=== PATIENT | male | born 1970 | race Caucasian/White ===

== ENCOUNTER 2019-02-25 21:24 | Inpatient (IN) | payer BC, SELFPAY ==
[2019-02-25] VITALS (17 sets, daily range): BP systolic 147–168; BP diastolic 96–111; PULSE 80–100; RESP 10–27; TEMP 36.8; O2SAT 93–97
--- NOTE | 2019-02-25 21:47 | DI.CT_ITS ---
SYMPTOM/DIAGNOSIS: VOMITING AND EPIGASTRIC PAIN CT ABDOMEN AND PELVIS: CT scan of the abdomen and pelvis was performed following the uneventful administration of intravenous contrast material. No priors for comparison. The visualized lung bases are clear. There is a circumferential mass seen in the distal esophagus extending in to the stomach. It measures 3.7 cm AP x 5.4 cm transverse x 7.8 cm cranial caudally. The superior aspect of the mass is not included. The liver is normal in size. There is decreased attenuation of the liver suggesting fatty infiltration. No suspicious hepatic mass seen. The portal, superior mesenteric and splenic veins are patent. The gallbladder is negative. There is no biliary ductal dilatation. The pancreas, spleen and adrenal glands are unremarkable. The kidneys show normal and symmetric enhancement. No evidence of a solid renal mass or obstruction is present. The urinary bladder is intact. The reproductive organs are unremarkable. The aorta is of normal caliber. There do appear to be mildly enlarged lymph nodes in the region of the celiac access. No abdominal or pelvic ascites or pneumoperitoneum is present. Apart from the abnormal findings at the gastroesophageal junction the bowel is unremarkable. No findings to suggest an acute appendicitis are present. Degenerative changes are seen in the spine. IMPRESSION: 3.7 AP x 5.4 cm transverse by at least 7.5 cm mass-like lesion extending from the distal esophagus in to the stomach. This may represent neoplasm, infectious or inflammatory process cannot be excluded. 2. Hepatic steatosis
--- NOTE | 2019-02-25 21:48 | ED.GENADUL_ITS ---
Discharge Plan Disposition Patient Disposition: [facility] INPATIENT Condition: Stable Discharge Details Chief Complaint: Abd Prob Clinical Impression: Esophageal mass Primary Care Provider: Juhi Lassiter V ED Provider: Tyler Casiano Home Meds and New Rx's Prescriptions: No Action pantoprazole 40 MG tablet,delayed release (DR/EC) 40 mg PO DAILY RF: 0 hydrochlorothiazide 25 mg Tablet RF: 0 Medical Decision Making 49-year-old male states he has had weeks of intermittent episodes of nausea and vomiting that are primarily provoked by eating. He states the discomfort responded to periods of decreased p.o. intake, but after restarting solid foods this week he is developed intermittent episodes of vomiting which occurred tonig ht and were associated with 2 episodes of production of clotted blood with the emesis. He did not have syncope. Is not had a fever. He states he formally was drinking daily but not for some weeks time. He arrives with a temp of 36.7, pulse 90, blood pressure 123/79. He is tender in the epigastrium. His differential diagnosis includes pancreatitis, gastritis, biliary colic, must exclude an atypical presentation of ACS. Patient had IV access established, given PPI, antiemetic, parenteral analgesia. He is referred for EKG, laboratory testing, chest x-ray and CT scan of the abdomen and pelvis. Labs reveal a white blood cell count of 10, hematocrit 45, platelets 358. Slight anion gap of 12, lactic acid is normal at 0.9. Total bili still elevated at 1.5. Troponin is negative. Lipase 43. CT: Mass or hyperenhancing inflammatory or infectious process at the distal esophagus extending into stomach, measuring up to 7.[address] Carranza who recommends medicine admission with maintenance fluids overnight, probable upper GI endoscopy with biopsy on Wednesday. No acute surgical issue at this time. Discussed with Dr Lala and patient to be admitted. Lab Data Lab results reviewed: Yes I reviewed the patient's lab results. Laboratory Results - last 24 hr 02/25/19 02/25/19 02/25/19 21:40 21:40 21:40 WBC 10.68 RBC 4.99 Hgb 15.8 Hct 45.8 MCV 91.8 MCH 31.7 MCHC 34.5 RDW 12.4 Plt Count 358 MPV 9.0 Immature Gran % 0.5 Neutrophils % 70.5 Lymphocytes % 14.2 Monocytes % 14.0 Eosinophils % 0.6 Basophils % 0.2 Absolute Neutrophils 7.53 H Absolute Lymphocytes 1.52 Absolute Monocytes 1.50 H Absolute Eosinophils 0.06 Absolute Basophils 0.02 Sodium 137 Potassium 3.9 Chloride 99 Carbon Dioxide 25.5 Anion Gap 12.5 H BUN 8 Creatinine 0.76 Estimated GFR/1.73 m2 >= 60.00 Glucose 109 H Lactate 0.9 Calcium 9.4 Magnesium 1.8 Total Bilirubin 1.5 H AST 22 ALT 32 Alkaline Phosphatase 85 Troponin I < 0.05 Total Protein 7.4 Albumin 3.1 L Lipase 43 L ECG Data Attestation: I personally reviewed and interpreted this ECG (s) as follows: Interpretation: Normal sinus rhythm with a rate of 83, the QRS is narrow, there is no ST segment elevation present. HPI General Mode of arrival: ambulatory . Date/Time Provider Initiated Documentation: 02/25/19 21:31 . Limitations to Documentation: no limitations . Information obtained by: patient and family . History of Present Illness 49 year old M presents to the emergency department with the chief complaint of Epigastric pain and vomiting, described as moderate and similar to prior epi sodes, Quality is described as aching and dull, and is localized to the abdomen. Patient reports radiation to back. Patient started experiencing this day(s) and it has been intermittent. Rest improves symptom(s), Eating worsens symptoms . Patient notes loss of appetite and nausea/vomiting; denies fever/chills. Patient did receive the following treatments prior to arrival, none Related Data Home Medications Medication Instructions Recorded Confirmed pantoprazole 40 mg PO DAILY 07/21/15 02/25/19 hydrochlorothiazide 02/25/19 Allergies Allergy/AdvReac Type Severity Reaction Status Date / Time aspirin AdvReac Unverified 02/25/19 22:08 General Stated Complaint: Abd Prob JAXSON: 3 Review of Systems Review of Systems Recently feels food has bee getting stuck. Some clotted blood with emesis this evening. No fever. States is been constipated. States he used to drink 3-6 alcoholic beverages per day, not for some weeks. States that intermittent epigastric discomfort that is worse with eating over weeks time. 8 systems reviewed and otherwise neg [facility] Social History Smoking/Tobacco Use Status: Former Tobacco Use Alcohol Intake: current Alcohol Intake frequency: 3 or more drinks per day Alcohol type: hard liquor Drug use: Occasionally Substance use type: does not use Do you feel safe at home: Yes Do you feel safe in your relationship?: Yes Exam Narrative Exam Narrative: GEN: awake, alert, oriented 3. Pleasant, well groomed, interactive. HEAD: Normocephalic, atraumatic ENT: Mucous membranes moist, oropharynx unremarkable, External ear exam unremarkable EYES: PERRL, EOMI NECK: Full ROM, no FAUSTO, no menigismus CHEST/RESP: Tender in the upper quadrants, most focally at the epigastrium, clear to auscultation bilateral, no wheeze/rhonchi/rales CARDIOVASCULAR: Borderline tachycardia, no murmur, rub yanna. 2+ Rad pulse bilateral ABDOMEN: Soft, nontender, no mass. +Bowel sounds EXT: Full ROM, no edema, no rash Neuro: Grossly normal neurologic exam, conversant, interactive. Psych: Speech fluent, thoughts congruent, affect normal Course Vital Signs Temperature 36.8 C 02/25/19 21:34 Pulse 91 H 02/25/19 21:34 Respiratory Rate 14 02/25/19 21:34 Blood Pressure 160/111 H 02/25/19 21:34 Pulse Oximetry 97 02/25/19 21:34 Temperature 36.7 C 02/25/19 21:38 Temperature Source Temporal Artery Scan 02/25/19 21:38 Pulse 115 H 02/25/19 21:38 Respiratory Rate 14 02/25/19 21:38 Respiratory Effort Non-Labored 02/25/19 21:36 Blood Pressure 123/79 02/25/19 21:38 Blood Pressure Position Supine 02/25/19 21:38 Pulse Oximetry 98 02/25/19 21:38 Oxygen Delivery Method Room Air 02/25/19 21:38 Oxygen Flow Rate 0 02/25/19 21:38 Pain Level 3 02/25/19 21:38
[2019-02-25 21:57] LABS: Lactate 0.9 mmol/L (0.6-1.4)
[2019-02-25] MEDS: Normal Saline 1,000 ML 1000 ML IV (21:57)
[2019-02-25] MEDS: HYDROmorphone 2 MG/ML VIAL 0.5 MG IVP (21:58)
[2019-02-25] MEDS: Ondansetron 4 MG/2 ML VIAL IVP (21:58)
[2019-02-25] MEDS: Pantoprazole 40 MG VIAL IVP (21:59)
[2019-02-25 22:01] LABS: Abs Immature Grans 0.05 k/cumm (0.0-0.09); Absolute Basophil Count 0.02 k/cumm (0.0-0.2); Absolute Eosinophil Count 0.06 k/cumm (0.0-0.7); Absolute Lymphocyte Count 1.52 k/cumm (1.2-3.4); Absolute Neutrophil Count 7.53 k/cumm (1.2-6.7); Basophils % 0.2; Eosinophils % 0.6; HCT 45.8 % (40.0-50.0); HGB 15.8 g/dL (13.5-17.5); Immature Grans % 0.5; Lymphocytes % 14.2; Mean Corp. HGB Concentration 34.5 g/dL (32.0-36.0); Mean Corpuscular Hemoglobin 31.7 pg (27.0-33.0); Mean Corpuscular Volume 91.8 fL (80-95); Neutrophils % 70.5; Platelet Count 358 x1000/uL (130-400); RBC 4.99 m/cumm (4.50-6.00); RBC Distribution Width 12.4 % (11.8-14.1); White Blood Cell Count 10.68 k/cumm (4.4-10.8)
[2019-02-25 22:17] LABS: ALT 32 U/L (12-78); AST 22 U/L (15-37); Albumin 3.1 g/dL (3.4-5.0); Alkaline Phosphatase 85 U/L (46-116); Anion Gap 12.5 mmol/L (3-11); BUN 8 mg/dL (7-18); Bilirubin, Total 1.5 mg/dL (0.2-1.0); CO2 25.5 mmol/L (21.0-32.0); CREATININE 0.76 mg/dL (0.70-1.30); Calcium 9.4 mg/dL (8.5-10.1); Chloride 99 mmol/L (98-107); Glucose 109 mg/dL (70-100); Lipase 43 U/L (73-393); Magnesium 1.8 mg/dL (1.8-2.4); Potassium 3.9 mmol/L (3.5-5.1); Sodium 137 mmol/L (136-145); Total Protein 7.4 g/dL (6.4-8.2); Troponin I < 0.05 ng/mL (0.00-0.06)
[2019-02-25 22:57] LABS: Bilirubin Negative (Negative); Blood Moderate (Negative); Clarity Clear (Clear); Glucose Negative (Negative); Ketones 15 mg/dL (Negative); Leukocyte Esterase Negative (Negative); Nitrite Negative (Negative); Urobilinogen 0.2 EU/dL (Up TO 0.2)
[2019-02-25 23:00] LABS: Bacteria Negative HPF (Negative); C & S Indicated? No; Casts Negative LPF (Negative); Crystals Negative HPF (Negative); Epithelial Cells Negative HPF (Negative); Mucus Negative (Negative); RBC 0-2 (0-2); WBC 0-2 HPF (0-5)
--- NOTE | 2019-02-25 23:00 | DI.RAD_ITS ---
SYMPTOM/DIAGNOSIS: EPIGASTRIC PAIN, VOMITING CHEST X-RAY: Frontal and lateral views. Comparison 06/03/17 Heart size and pulmonary vasculature are within normal limits and stable. The lungs are clear. No effusions or pneumothoraces are identified. Age appropriate degenerative changes are seen in the spine. IMPRESSION: No acute pulmonary process.
--- NOTE | 2019-02-25 23:17 | DI.VRAD_ITS ---
EXAM: CT Abdomen and Pelvis With Contrast EXAM DATE/TIME: 02/25/2019 9:48 PM CLINICAL HISTORY: 49 years old, male; Vomiting and other: Epigastric pain; Abdominal pain; Patient HX: Vomiting and epigastric pain; Additional info: Chest pain and vomiting blood TECHNIQUE: Imaging protocol: Axial computed tomography images of the abdomen and pelvis with intravenous contrast. Coronal and sagittal reformatted images were created and reviewed. COMPARISON: No relevant prior studies available. FINDINGS: Liver: There is a diffuse decrease in hepatic parenchymal density, consistent with mild fatty infiltration. There is a small region of focal fatty infiltration in the liver adjacent to the falciform ligament. Gallbladder and bile ducts: Normal. No calcified stones. No ductal dilation. Pancreas: Normal. No ductal dilation. Spleen: Normal. No splenomegaly. Adrenals: Normal. No mass. Kidneys and ureters: Normal. No hydronephrosis. Stomach and bowel: There is no evidence of intestinal perforation or obstruction. Appendix: No evidence of appendicitis. Intraperitoneal space: No free intraperitoneal gas. Retroperitoneal space: Circumferential mass or hyperenhancing inflammatory/infectious process, distal esophagus, extending into the stomach, measuring 3.7 AP by 5.4 transverse by 7.5 cm longitudinally. Vasculature: Normal. No abdominal aortic aneurysm. Lymph nodes: Normal. No enlarged lymph nodes. Bladder: Unremarkable as visualized. Reproductive: Unremarkable as visualized. Bones/joints: The spine demonstrates mild degenerative changes at multiple levels. Soft tissues: Unremarkable. IMPRESSION: 1. Mass or hyperenhancing inflammatory or infectious process at the distal esophagus extending into stomach, measuring up to 7.5 cm. 2. Fatty liver. Dictated and Authenticated by: Anil Sinha MD. Ordering:SAUL Scott MD
--- NOTE | 2019-02-25 23:17 | DI.VRAD_ITS ---
EXAM: XR Chest, 2 Views EXAM DATE/TIME: 02/25/2019 9:48 PM CLINICAL HISTORY: 49 years old, male; Other: Epigastric pain, vomiting; Additional info: Chest pain and vomiting blood TECHNIQUE: Imaging protocol: XR of the chest, 2 views. COMPARISON: CR CHEST 2 VIEWS PA,LAT 06/03/2017 9:31 AM FINDINGS: Lungs: Unremarkable. No consolidation. Pleural space: Unremarkable. No pleural effusion. No pneumothorax. Heart/Mediastinum: Unremarkable. No cardiomegaly. Bones/joints: Degenerative changes of spine. IMPRESSION: No acute findings. Dictated and Authenticated by: Anil Sinha MD. Ordering:SAUL Scott MD
[2019-02-25] MEDS: Omnipaque 350 MG/ML 100 ML BTL IJ (23:24)
[2019-02-25] MEDS: Normal Saline 1,000 ML 150 ML IV (23:50)
--- NOTE | 2019-02-25 23:57 | W.PM.HP.N ---
Date of service: 02/25/19 Time of Service: 23:57 Assessment and Plan (1) Hematemesis: Start date: 02/25/19 Current visit: Yes Status: Acute This is a 49-year-old gentleman who presented with hematemesis and CT scan did reveal greater than 7 cm mass in the distal esophagus extending into the stomach. He has been having increasing symptoms and weight loss with anorexia over the last 2 weeks. He is a smoker and previous daily drinker. He is also had decreased bowel movements with this decrease eating with melena when he did induce bowel movements with cathartics. His abdominal discomfort appears to be radiation from his stomach with no focal tenderness to suggest diverticulitis with patient having tenderness in the left lower quadrant. There is no evidence of significant blood loss the patient not being anemic or infection with a white blood cell count normal and no fever. Surgery was called and deferred admission to surgical service will be consulted for evaluation. Patient may deserve an EGD at least with biopsy and consider gastrostomy tube for feeding if this mass is obstructing as well as follow-up with colonoscopy because of the lower abdominal symptoms. Patient is a full code. Overnight we will IV hydrate keep on clear fluid diet. He is on minimal meds we will continue IV PPI and treat his hypertension with metoprolol for now. Qualifiers: Nausea presence: with nausea Qualified Code(s): K92.0 - Hematemesis (2) Esophageal mass: Start date: 02/25/19 Current visit: Yes Status: Acute Surgical consultation for EGD and biopsy which will help with long-term plan. He may require feeding tube to bypass this obstruction until this can be further evaluated and treated. (3) HTN (hypertension), benign: Current visit: Yes Status: Chronic This is on his problem with the patient questionably on a HCTZ at home. We will treat this with metoprolol for now and monitor hydrated. (4) Alcohol use disorder, moderate, in early remission: Current visit: Yes Status: Chronic Patient states he has not drunk for 2 months and was drinking beer daily. This appears to have been problematic and does increase his risk for esophageal cancer with his tobacco use. There is not appear to be reason to be concerned about withdrawal patient not having drunk 2 months. Continue to monitor and certified addiction counselor on complete and maintenance of cessation. (5) Tobacco dependence: Current visit: Yes Status: Chronic Patient will be placed on a NicoDerm patch and will be given nebulizers treatment of his bronchospasm. His chest x-ray was unrevealing and he appears to have no acute infectious process with his lungs. He may be placed on inhalers at home use as well. Briefly counseled on tobacco cessation which would be beneficial to his health. History of Present Illness Chief Complaint: Epigastric abdominal pain with hematemesis Narrative: This is a 49-year-old gentleman who has had 2-week history of increasing dysphasia with decreased appetite and 20 pound weight loss presented to the ED when he began to have epigastric discomfort which radiated to his back and nausea with hematemesis of blood clots. Over the last 2 weeks he has also had decreased bowel movements and has been increasing cathartics with some passing of melanotic stools. He reported to the ED for evaluation after vomiting blood clots and evaluation did reveal a quite large esophageal mass distally which is probably having some bleeding because of the above symptoms. He also is large enough to be causing obstruction with his dysphasia. He is able to swallow clear fluids and has not drank beer for 2 months though he was drinking daily prior to that. He also continues to smoke tobacco. He is not on inhalers though he does have a cough with wheezing. Dilaudid did give him relief of his pain. He also has some referred pain into his lower abdomen but no one point of tenderness that he can describe. He has no history of diverticulosis. He has no complaints and no other GI complaints having never had a colonoscopy. He denies any peripheral edema. He has no focal neurological complaints. Pertinent review of systems otherwise unrevealing. Pertinent history also otherwise unrevealing. Patient does take PPI for thiazide for blood pressure. Does state that he is allergic to aspirin. With his dysphasia he has had progressive sensation of solids getting stuck in the lower esophagus area. Review of Systems Review of Systems 13 point review of systems otherwise unrevealing or as per HPI and stable. [facility] Social History Smoking/Tobacco Use Status: Former Tobacco Use Alcohol Intake: current Alcohol Intake frequency: 3 or more drinks per day Alcohol type: hard liquor Drug use: Occasionally Substance use type: does not use Do you feel safe at home: Yes Do you feel safe in your relationship?: Yes Meds Home Medications Medication Instructions Recorded Confirmed Type pantoprazole 40 mg PO DAILY 07/21/15 02/25/19 History hydrochlorothiazide 02/25/19 History Allergies Allergy/AdvReac Type Severity Reaction Status Date / Time aspirin AdvReac Unverified 02/25/19 22:08 Exam Narrative Exam Narrative: General: Patient appears older than stated age and is in moderate distress from his discomfort. He is alert and oriented x3. He is disheveled. HEENT: Normocephalic with eyes revealing pupils equal reactive light symmetrically, there are anicteric and extraocular movement intact. Oropharynx with pink oral mucosa and poor dentition. External ears and nose normal. Neck: Supple without JVD. Back: Stooped posture with no CVA tenderness. Lungs: Decreased aeration with bronchovesicular breath sounds diffusely and increased expiratory phase with expiratory wheeze diffusely. No focalizing rales or rhonchi. Heart: Regular rate and rhythm without murmurs gallops appreciated. No rubs. Chest: Normal with no tenderness to palpation. Abdomen: Moderately obese contour. Slightly tender and the epigastrium no palpable hepatomegaly or masses. Slight tenderness also the lower abdomen more the left but no guarding, masses or rebound. Bowel sounds are positive in all quadrants. Genitalia/Rectal: Not examined. Extremities: Without clubbing, cyanosis or pitting edema. Peripheral pulses are intact. Good capillary refill. Skin: Tanned with mild actinic changes over sun exposed areas, no rashes, warm and dry with good turgor. Neuro: Cranial nerves II through XII grossly intact with no focalizing motor deficits and sensory grossly intact. Results Imaging Imaging Studies: EXAM: XR Chest, 2 Views EXAM DATE/TIME: 02/25/2019 9:48 PM CLINICAL HISTORY: 49 years old, male; Other: Epigastric pain, vomiting; Additional info: Chest pain and vomiting blood TECHNIQUE: Imaging protocol: XR of the chest, 2 views. COMPARISON: CR CHEST 2 VIEWS PA,LAT 06/03/2017 9:31 AM FINDINGS: Lungs: Unremarkable. No consolidation. Pleural space: Unremarkable. No pleural effusion. No pneumothorax. Heart/Mediastinum: Unremarkable. No cardiomegaly. Bones/joints: Degenerative changes of spine. IMPRESSION: No acute findings. Dictated and Authenticated by: Anil Sinha MD. EXAM: CT Abdomen and Pelvis With Contrast EXAM DATE/TIME: 02/25/2019 9:48 PM CLINICAL HISTORY: 49 years old, male; Vomiting and other: Epigastric pain; Abdominal pain; Patient HX: Vomiting and epigastric pain; Additional info: Chest pain and vomiting blood TECHNIQUE: Imaging protocol: Axial computed tomography images of the abdomen and pelvis with intravenous contrast. Coronal and sagittal reformatted images were created and reviewed. COMPARISON: No relevant prior studies available. FINDINGS: Liver: There is a diffuse decrease in hepatic parenchymal density, consistent with mild fatty infiltration. There is a small region of focal fatty infiltration in the liver adjacent to the falciform ligament. Gallbladder and bile ducts: Normal. No calcified stones. No ductal dilation. Pancreas: Normal. No ductal dilation. Spleen: Normal. No splenomegaly. Adrenals: Normal. No mass. Kidneys and ureters: Normal. No hydronephrosis. Stomach and bowel: There is no evidence of intestinal perforation or obstruction. Appendix: No evidence of appendicitis. Intraperitoneal space: No free intraperitoneal gas. Retroperitoneal space: Circumferential mass or hyperenhancing inflammatory/infectious process, distal esophagus, extending into the stomach, measuring 3.7 AP by 5.4 transverse by 7.5 cm longitudinally. Vasculature: Normal. No abdominal aortic aneurysm. Lymph nodes: Normal. No enlarged lymph nodes. Bladder: Unremarkable as visualized. Reproductive: Unremarkable as visualized. Bones/joints: The spine demonstrates mild degenerative changes at multiple levels. Soft tissues: Unremarkable. IMPRESSION: 1. Mass or hyperenhancing inflammatory or infectious process at the distal esophagus extending into stomach, measuring up to 7.5 cm. 2. Fatty liver. Dictated and Authenticated by: Anil Sinha MD. Labs : 02/25/19 21:40 02/25/19 21:40 Laboratory Results - last 24 hr 02/25/19 02/25/19 02/25/19 21:40 21:40 21:40 WBC 10.68 RBC 4.99 Hgb 15.8 Hct 45.8 MCV 91.8 MCH 31.7 MCHC 34.5 RDW 12.4 Plt Count 358 MPV 9.0 Immature Gran % 0.5 Neutrophils % 70.5 Lymphocytes % 14.2 Monocytes % 14.0 Eosinophils % 0.6 Basophils % 0.2 Absolute Neutrophils 7.53 H Absolute Lymphocytes 1.52 Absolute Monocytes 1.50 H Absolute Eosinophils 0.06 Absolute Basophils 0.02 Sodium 137 Potassium 3.9 Chloride 99 Carbon Dioxide 25.5 Anion Gap 12.5 H BUN 8 Creatinine 0.76 Estimated GFR/1.73 m2 >= 60.00 Glucose 109 H Lactate 0.9 Calcium 9.4 Magnesium 1.8 Total Bilirubin 1.5 H AST 22 ALT 32 Alkaline Phosphatase 85 Troponin I < 0.05 Total Protein 7.4 Albumin 3.1 L Lipase 43 L Urine Color Urine Clarity Urine pH Ur Specific [place] Urine Protein Urine Ketones Urine Blood Urine Nitrite Urine Bilirubin Urine Urobilinogen Ur Leukocyte Esterase Urine RBC Urine WBC Ur Epithelial Cells Urine Crystals Urine Bacteria Urine Casts Urine Mucus Ur Culture Indicated? Urine Glucose 02/25/19 22:50 WBC RBC Hgb Hct MCV MCH MCHC RDW Plt Count MPV Immature Gran % Neutrophils % Lymphocytes % Monocytes % Eosinophils % Basophils % Absolute Neutrophils Absolute Lymphocytes Absolute Monocytes Absolute Eosinophils Absolute Basophils Sodium Potassium Chloride Carbon Dioxide Anion Gap BUN Creatinine Estimated GFR/1.73 m2 Glucose Lactate Calcium Magnesium Total Bilirubin AST ALT Alkaline Phosphatase Troponin I Total Protein Albumin Lipase Urine Color Yellow Urine Clarity Clear Urine pH 7.0 Ur Specific [place] 1.010 Urine Protein Negative Urine Ketones 15 H Urine Blood Moderate H Urine Nitrite Negative Urine Bilirubin Negative Urine Urobilinogen 0.2 Ur Leukocyte Esterase Negative Urine RBC 0-2 Urine WBC 0-2 Ur Epithelial Cells Negative Urine Crystals Negative Urine Bacteria Negative Urine Casts Negative Urine Mucus Negative Ur Culture Indicated? No Urine Glucose Negative Last Vital Signs Temp 36.8 C 02/25/19 21:34 Pulse 82 02/25/19 23:01 Resp 17 02/25/19 23:10 BP 158/101 H 02/25/19 23:01 Pulse Ox 95 02/25/19 23:10
[2019-02-26] VITALS (12 sets, daily range): BP systolic 107–173; BP diastolic 70–110; PULSE 60–92; RESP 1–19; TEMP 35.4–36.6; O2SAT 94–98
[2019-02-26] MEDS: HYDROmorphone 2 MG/ML VIAL 1 MG IVP ×10 (00:34→22:26)
[2019-02-26] MEDS: Albuterol/Ipratropium 3 ML UPD VIAL UPD ×3 (03:27→18:10)
[2019-02-26] MEDS: Nicotine 21 MG/24 HR PATCH TD ×2 (03:27→09:56)
[2019-02-26] MEDS: Metoprolol 25 MG TAB PO ×3 (04:44→19:28)
[2019-02-26] MEDS: Normal Saline 1,000 ML 150 ML IV ×3 (07:21→20:21)
[2019-02-26 07:50] LABS: HCT 42.4 % (40.0-50.0); HGB 14.4 g/dL (13.5-17.5); Mean Corpuscular Hemoglobin 31.6 pg (27.0-33.0); Mean Corpuscular Volume 93.2 fL (80-95); Mean Platelet Volume 8.9 fL (8.0-11.0); Platelet Count 333 x1000/uL (130-400); RBC 4.55 m/cumm (4.50-6.00); RBC Distribution Width 12.3 % (11.8-14.1); White Blood Cell Count 9.62 k/cumm (4.4-10.8)
[2019-02-26 08:05] LABS: ALT 28 U/L (12-78); AST 19 U/L (15-37); Albumin 2.7 g/dL (3.4-5.0); Alkaline Phosphatase 72 U/L (46-116); Anion Gap 7.6 mmol/L (3-11); BUN 6 mg/dL (7-18); Bilirubin, Total 1.2 mg/dL (0.2-1.0); CO2 27.4 mmol/L (21.0-32.0); CREATININE 0.69 mg/dL (0.70-1.30); Calcium 8.7 mg/dL (8.5-10.1); Chloride 104 mmol/L (98-107); Glucose 96 mg/dL (70-100); Potassium 3.8 mmol/L (3.5-5.1); Sodium 139 mmol/L (136-145); Total Protein 6.5 g/dL (6.4-8.2)
[2019-02-26 08:39] LABS: TSH (W/Ref FT4) 3.27 uIU/mL (0.36-3.74)
[2019-02-26] MEDS: Normal Saline Flush 10 ML SYR IVP ×5 (09:43→19:28)
[2019-02-26] MEDS: Pantoprazole 40 MG VIAL IVP ×2 (09:43→19:27)
--- NOTE | 2019-02-26 10:04 | INITIAL_ITS ---
- If Service Date Differs Date of service: 02/26/19 Time of Service: 10:04 Care Management Initial Assess REASON FOR HOSPITALIZATION:: Hematemesis PAST MEDICAL HISTORY/PAST SURGICAL HISTORY:: GERD, hypertension, tobacco dependence PREVIOUS FUNCTIONAL STATUS/SOCIAL/FAMILY SUPPORTS:: Serafin lives with his leonid Mendez in a single family home in [facility] [place].he has 2 children. His daughter lives in [place] and his son lives in [facility]. 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 CURRENT FUNCTIONAL STATUS:: Serafin was sitting up in bed when CM came to visit. He was pleasant and engaged readily in conversation. He spoke openly about his condition and the possibility that he may have esophageal cancer. He stated that this is a really hard time with a lot to process. He states he has a lot of support from his fiancee. He talked a bit about their relationship and the fact that they have known each other since kindergarten. As adults they lost touch and their lives went in different directions, but they reconnected 2 1/2 years ago and have a great relationship now. ADVANCE DIRECTIVES:: Does not have currently but requested and was given a copy of the [place] Advanced Directives forms by CM. Has patient been provided with information about the portal?: Yes Did the patient sign up for the portal?: No (not yet but will) CODE STATUS:: Full Code INSURANCE COVERAGE / FINANCIAL ISSUES:: BS CURRENT HOME/COMMUNITY SERVICES/EQUIPMENT:: none PRIMARY CARE PHYSICIAN:: Juhi Lassiter POTENTIAL DISCHARGE NEEDS:: to be determined by hospital course PATIENT/FAMILY EDUCATION NEEDS:: Discharge plan, limitations, follow up plan, Ask Me Three. ANTICIPATED BARRIERS TO DISCHARGE:: none at this time TRANSPORTATION:: via private vehicle with family when ready PLAN:: Serafin is undergoing a medical workup to identify the nature of the mass in his esophagus as well as the cause of the hematemesis. His discharge plan remains uncertain at this time and is dependent on the findings from the workup. CM will continue to provide support to patient, fiancee and the discharge planning process.
--- NOTE | 2019-02-26 11:31 | SCONE_ITS ---
Date of service: 02/26/19 Time of Service: 11:31 Assessment and Plan (1) Esophageal mass: Current visit: Yes Status: Acute 49 y/o male who presents with progressive symptoms of dysphagia, abdominal pain, and weight loss over the past 2-[address] abd/pelvis with an esophageal mass of the distal esophagus extending across the GE junction to the stomach measuring up to 7.5cm. On my review of the films, the mass is present in the highest CT cut and may extend even more proximally than shown. He had one reported episode of hematemesis which has resolved. H/H has been stable. Abdomen only minimally tender at this time. Findings reviewed with patient. We discussed that the CT findings are concerning for a possible esophageal cancer. Benign inflammatory process less likely. We discussed the rationale and procedure for an EGD (esophagogastroduodenoscopy) and biopsy to establish a tissue diagnosis and evaluate the degree of obstruction. Risks, benefits, and alternatives including but not limited to risks with anesthesia sedation, bleeding, incomplete endoscopy, perforation, and possible additional procedures all discussed. Further recommendations pending EGD findings. All questions answered. Patient wishes to proceed. Will make patient NPO after midnight tonight for possible EGD 02/27/19. Will sign out patient to Dr. Mcbride. History of Present Illness Chief Complaint: Abdominal pain, hematemesis Narrative: 49 y/o male admitted overnight through the ED at [facility]. Patient notes progressive symptoms over the past 2-3 weeks, including diffuse, sharp, intermittent abdominal pain primarily in the epigastrium, right lower abdomen, and left lower abdomen. Pain associated with constipation. After the use of laxatives and enemas, he noted black stools. He has also had progressive dysphagia over the past 2-3 weeks. He states that he is not able to tolerate meats. He has been able to tolerate only small amounts of soft foods such as mashed potatoes and ground meat at a time. He notes that he was taking Ensure at home. He notes that when he tries to eat solids, it feels like it gets stuck in his lower chest and backs up until he regurgitates. He did not have emesis until after he tried to drink water yesterday and had an emesis followed by dry heaves and subsequent hematemesis of blood clots. He denies any nausea or vomiting this am. He had chills yesterday but no fever. He has lost about 25 pounds over the past 3 weeks. He notes anorexia but was able to tolerate some clears this am. He has also noted increased hiccups over the past couple weeks. He has been on Protonix x 20 years for GERD. He has never had an EGD or colonoscopy. He states that he has not had any significant alcohol intake in the last few months but does admit to drinking beers daily prior to that. He also smokes 1/2 ppd and occasional marijuana. CT abd/pelvis in the ED last night was concerning for an esophageal mass at the GE junction and extending into the stomach, at least 7.5 cm in length per [facility] report. Review of Systems Review of Systems All systems reviewed & are unremarkable except as noted in HPI and below Constitutional Reports chills, Denies fever(s), Reports poor appetite and Reports weight loss Cardiovascular Reports chest pain and Denies rapid heart rate Gastrointestinal Reports abdominal pain, Reports melena, Denies hematochezia, Reports heartburn, Denies diarrhea, Reports nausea, Reports vomiting and Reports hematemesis [facility] Medical History (Updated 02/26/19 @ 11:48 by Miriam Carranza MD) GERD (gastroesophageal reflux disease) (Chronic) HTN (hypertension), benign (Chronic) Tobacco dependence (Chronic) Family History (Updated 02/26/19 @ 11:54 by Miriam Carranza MD) Mother Cancer Social History (Updated 02/26/19 @ 11:52 by Miriam Carranza MD) Smoking/Tobacco Use Status: Current every day Tobacco Type: cigarettes Smoking packs per day: 0.5 Alcohol Intake: current Alcohol Intake frequency: 3 or more drinks per day Alcohol type: hard liquor Drug use: Occasionally Substance use type: marijuana Do you feel safe at home: Yes Do you feel safe in your relationship?: Yes Exam Const General: cooperative, comfortable, no acute distress and well developed Nutritional Appearance: well nourished Orientation: alert and oriented x3 HENMT Head: normocephalic and atraumatic Resp Effort & Inspection: normal respiratory effort and able to speak in complete sentences Auscultation: clear to auscultation bilaterally Cardio Jugular venous pressure: no JVD Rate: regular rate Rhythm: regular rhythm GI Inspection: non-distended Palpation: soft, not firm, no guarding, not rigid and tender (minimal tenderness to palpation in epigastrium and LLQ) Auscultation: normoactive bowel sounds Skin General skin exam: no rashes or lesions noted and no jaundice Results Last Vital Signs Temp 35.4 C L 02/26/19 07:52 Pulse 80 02/26/19 07:52 Resp 19 02/26/19 07:52 BP 136/90 02/26/19 07:52 Pulse Ox 94 L 02/26/19 07:52 Labs : 02/26/19 07:20 02/26/19 07:20 Laboratory Results - last 24 hr 02/25/19 02/25/19 02/25/19 21:40 21:40 21:40 WBC 10.68 RBC 4.99 Hgb 15.8 Hct 45.8 MCV 91.8 MCH 31.7 MCHC 34.5 RDW 12.4 Plt Count 358 MPV 9.0 Immature Gran % 0.5 Neutrophils % 70.5 Lymphocytes % 14.2 Monocytes % 14.0 Eosinophils % 0.6 Basophils % 0.2 Absolute Neutrophils 7.53 H Absolute Lymphocytes 1.52 Absolute Monocytes 1.50 H Absolute Eosinophils 0.06 Absolute Basophils 0.02 Sodium 137 Potassium 3.9 Chloride 99 Carbon Dioxide 25.5 Anion Gap 12.5 H BUN 8 Creatinine 0.76 Estimated GFR/1.73 m2 >= 60.00 Glucose 109 H Lactate 0.9 Calcium 9.4 Magnesium 1.8 Total Bilirubin 1.5 H AST 22 ALT 32 Alkaline Phosphatase 85 Troponin I < 0.05 Total Protein 7.4 Albumin 3.1 L Lipase 43 L TSH Urine Color Urine Clarity Urine pH Ur Specific [place] Urine Protein Urine Ketones Urine Blood Urine Nitrite Urine Bilirubin Urine Urobilinogen Ur Leukocyte Esterase Urine RBC Urine WBC Ur Epithelial Cells Urine Crystals Urine Bacteria Urine Casts Urine Mucus Ur Culture Indicated? Urine Glucose 02/25/19 02/26/19 02/26/19 22:50 07:20 07:20 WBC RBC Hgb Hct MCV MCH MCHC RDW Plt Count MPV Immature Gran % Neutrophils % Lymphocytes % Monocytes % Eosinophils % Basophils % Absolute Neutrophils Absolute Lymphocytes Absolute Monocytes Absolute Eosinophils Absolute Basophils Sodium 139 Potassium 3.8 Chloride 104 Carbon Dioxide 27.4 Anion Gap 7.6 BUN 6 L Creatinine 0.69 L Estimated GFR/1.73 m2 >= 60.00 Glucose 96 Lactate Calcium 8.7 Magnesium Total Bilirubin 1.2 H AST 19 ALT 28 Alkaline Phosphatase 72 Troponin I Total Protein 6.5 Albumin 2.7 L Lipase TSH 3.27 Urine Color Yellow Urine Clarity Clear Urine pH 7.0 Ur Specific [place] 1.010 Urine Protein Negative Urine Ketones 15 H Urine Blood Moderate H Urine Nitrite Negative Urine Bilirubin Negative Urine Urobilinogen 0.2 Ur Leukocyte Esterase Negative Urine RBC 0-2 Urine WBC 0-2 Ur Epithelial Cells Negative Urine Crystals Negative Urine Bacteria Negative Urine Casts Negative Urine Mucus Negative Ur Culture Indicated? No Urine Glucose Negative 02/26/19 07:20 WBC 9.62 RBC 4.55 Hgb 14.4 Hct 42.4 MCV 93.2 MCH 31.6 MCHC 34.0 RDW 12.3 Plt Count 333 MPV 8.9 Immature Gran % Neutrophils % Lymphocytes % Monocytes % Eosinophils % Basophils % Absolute Neutrophils Absolute Lymphocytes Absolute Monocytes Absolute Eosinophils Absolute Basophils Sodium Potassium Chloride Carbon Dioxide Anion Gap BUN Creatinine Estimated GFR/1.73 m2 Glucose Lactate Calcium Magnesium Total Bilirubin AST ALT Alkaline Phosphatase Troponin I Total Protein Albumin Lipase TSH Urine Color Urine Clarity Urine pH Ur Specific [place] Urine Protein Urine Ketones Urine Blood Urine Nitrite Urine Bilirubin Urine Urobilinogen Ur Leukocyte Esterase Urine RBC Urine WBC Ur Epithelial Cells Urine Crystals Urine Bacteria Urine Casts Urine Mucus Ur Culture Indicated? Urine Glucose Imaging Abdomen CT scan report/results: report reviewed and image reviewed CT scan - pelvis: report reviewed and image reviewed Imaging Studies: Patient Name: JACKLYN SHIPLEY #: [id number]: ER Ordering Provider: : REG ER Primary Care Provider: Juhi Lassiter M.D.Date of Exam: 02/25/19Sex: M : 1970Age: 49 Exam(s) EXAM: CT Abdomen and Pelvis With Contrast EXAM DATE/TIME: 02/25/2019 9:48 PM CLINICAL HISTORY: 49 years old, male; Vomiting and other: Epigastric pain; Abdominal pain; Patient HX: Vomiting and epigastric pain; Additional info: Chest pain and vomiting blood TECHNIQUE: Imaging protocol: Axial computed tomography images of the abdomen and pelvis with intravenous contrast. Coronal and sagittal reformatted images were created and reviewed. COMPARISON: No relevant prior studies available. FINDINGS: Liver: There is a diffuse decrease in hepatic parenchymal density, consistent with mild fatty infiltration. There is a small region of focal fatty infiltration in the liver adjacent to the falciform ligament. Gallbladder and bile ducts: Normal. No calcified stones. No ductal dilation. Pancreas: Normal. No ductal dilation. Spleen: Normal. No splenomegaly. Adrenals: Normal. No mass. Kidneys and ureters: Normal. No hydronephrosis. Stomach and bowel: There is no evidence of intestinal perforation or obstruction. Appendix: No evidence of appendicitis. Intraperitoneal space: No free intraperitoneal gas. Retroperitoneal space: Circumferential mass or hyperenhancing inflammatory/infectious process, distal esophagus, extending into the stomach, measuring 3.7 AP by 5.4 transverse by 7.5 cm longitudinally. Vasculature: Normal. No abdominal aortic aneurysm. Lymph nodes: Normal. No enlarged lymph nodes. Bladder: Unremarkable as visualized. Reproductive: Unremarkable as visualized. Bones/joints: The spine demonstrates mild degenerative changes at multiple levels. Soft tissues: Unremarkable. IMPRESSION: 1. Mass or hyperenhancing inflammatory or infectious process at the distal esophagus extending into stomach, measuring up to 7.5 cm. 2. Fatty liver. Dictated and Authenticated by: Anil Sinha MD. Ordering:SAUL Scott MD Ordered By: CC: Dictated By: Reports vrad 02/25/19 2148 02/25/19 [id number] Transcribed By: Sydnie Best This is privileged, confidential information intended only for the provider named. Any use or distribution by any person other than this provider is strictl y prohibited. If you receive this report in error, please notify us immediately at [phone] and return the original report to us at the address above. Thank-you.
[2019-02-26 12:48] LABS: HCT 42.6 % (40.0-50.0); HGB 14.4 g/dL (13.5-17.5)
--- NOTE | 2019-02-26 13:32 | PGE_ITS ---
Date of Service Date of service: 02/26/19 Time of Service: 13:32 Assessment and Plan (1) Hematemesis: Current visit: Yes Status: Acute Likely due to a bleeding esophageal mass. Bleeding seems to have clinically resolved. H/H stable - last Hgb is 14.4, exactly the same as at 7 am. I have increased PPI to BID. NPO after midnight for EGD/biopsy of mass. Qualifiers: Nausea presence: with nausea Qualified Code(s): K92.0 - Hematemesis (2) Esophageal mass: Current visit: Yes Status: Acute as above. Patient is aware that there is a very high probability of malignancy. (3) HTN (hypertension), benign: Current visit: Yes Status: Chronic BP is 124/74. HCTZ d/c'ed. Continue metoprolol. (4) Alcohol use disorder, moderate, in early remission: Current visit: Yes Status: Chronic Patient encouraged to continue abstinence. (5) Tobacco dependence: Current visit: Yes Status: Chronic Continue nicotine replacement. (6) DVT prophylaxis: Current visit: Yes Status: Acute SCD's. Chemical DVT ppx is contraindicated in setting of acute bleeding. (7) Discharge planning issues: Current visit: Yes Status: Acute Full code Possible discharge home tomorrow post EGD. Subjective Interval history since last seen: Denies dizziness, reports occasional chest pain at the same time as epigastric pain, but not now, reports ocassional nausea (not now). Abdominal pain is controlled. He did have a BM in the last 24 hours - describes color as yellow. States he has not had alcohol in at least 2 months. He states he now stopped smoking. Verbalizes understanding why he must not. Endorses unintentional weight loss of 25 lbs in 1 month. Evaluated by general surgery - planned for EGD/esophageal mass bx tomorrow. Exam Narrative Exam Narrative: General: very pleasant middle-aged Caucasina male, A&Ox3, sitting up comfortably in bed HEENT: EOMI, MMM Heart: RRR, no m/r/g Lungs: very quiet rhonchi B GI: abdomen is soft, mildly tender in epigastrium Extremitis: no e/c/c BLE's, 2+ pedal pulses B Objective Objective Clinical Data: Abnormal lab results 02/25/19 02/25/19 02/25/19 Range/Units 21:40 21:40 22:50 Absolute Neutrophils 7.53 H (1.2-6.7) k/cumm Absolute Monocytes 1.50 H (0.11-0.7) k/cumm Anion Gap 12.5 H (3-11) mmol/L BUN (7-18) mg/dL Creatinine (0.70-1.30) mg/dL Glucose 109 H (70-100) mg/dL Total Bilirubin 1.5 H (0.2-1.0) mg/dL Albumin 3.1 L (3.4-5.0) g/dL Lipase 43 L (73-393) U/L Urine Ketones 15 H (Negative) mg/dL Urine Blood Moderate H (Negative) 02/26/19 Range/Units 07:20 Absolute Neutrophils (1.2-6.7) k/cumm Absolute Monocytes (0.11-0.7) k/cumm Anion Gap (3-11) mmol/L BUN 6 L (7-18) mg/dL Creatinine 0.69 L (0.70-1.30) mg/dL Glucose (70-100) mg/dL Total Bilirubin 1.2 H (0.2-1.0) mg/dL Albumin 2.7 L (3.4-5.0) g/dL Lipase (73-393) U/L Urine Ketones (Negative) mg/dL Urine Blood (Negative) Vital Signs Temperature 36.3 C L 02/26/19 11:46 Temperature Source Tympanic 02/26/19 11:46 Pulse 72 02/26/19 11:46 Pulse Rhythm Regular 02/26/19 09:43 Pulse 80 02/25/19 23:10 Respiratory Rate 19 02/26/19 11:46 Respiratory Effort 02/26/19 09:43 Respiratory Depth Normal 02/26/19 09:43 Respiratory Pattern Normal 02/26/19 09:43 Blood Pressure 124/74 02/26/19 11:46 Blood Pressure Mean 114 02/25/19 23:01 Blood Pressure Position Supine 02/25/19 21:34 Pulse Oximetry 97 02/26/19 11:46 Oxygen Delivery Method Bi-pap 02/26/19 11:46 Oxygen Flow Rate 0 02/26/19 11:46 Pain Level 6 02/26/19 11:55 Comment 02/26/19 03:48 Intake & Output 02/25/19 02/26/19 02/26/19 23:59 11:59 23:59 Intake Total 1000 / 1000 1200 / 1320 120 / 1320 Output Total 300 / 300 Balance 1000 / 1000 900 / 1020 120 / 1020 Weight 104.326 kg 104.326 kg Intake: IV 1000 / 1000 1000 / 1000 Oral 200 / 320 120 / 320 Output: Urine 300 / 300 Other: Urine Color Yellow Urine Appearance Clear Urine Odor Normal Voiding Methods Urinal Laboratory Results WBC 9.62 k/cumm (4.4-10.8) 02/26/19 07:20 RBC 4.55 m/cumm (4.50-6.00) 02/26/19 07:20 Hgb 14.4 g/dL (13.5-17.5) 02/26/19 12:40 Hct 42.6 % (40.0-50.0) 02/26/19 12:40 MCV 93.2 fL (80-95) 02/26/19 07:20 MCH 31.6 pg (27.0-33.0) 02/26/19 07:20 MCHC 34.0 g/dL (32.0-36.0) 02/26/19 07:20 RDW 12.3 % (11.8-14.1) 02/26/19 07:20 Plt Count 333 x1000/uL (130-400) 02/26/19 07:20 MPV 8.9 fL (8.0-11.0) 02/26/19 07:20 Immature Gran % 0.5 02/25/19 21:40 70.5 02/25/19 21:40 14.2 02/25/19 21:40 14.0 02/25/19 21:40 0.6 02/25/19 21:40 0.2 02/25/19 21:40 Absolute Neutrophils 7.53 k/cumm (1.2-6.7) H 02/25/19 21:40 Absolute Lymphocytes 1.52 k/cumm (1.2-3.4) 02/25/19 21:40 Absolute Monocytes 1.50 k/cumm (0.11-0.7) H 02/25/19 21:40 Absolute Eosinophils 0.06 k/cumm (0.0-0.7) 02/25/19 21:40 Absolute Basophils 0.02 k/cumm (0.0-0.2) 02/25/19 21:40 Sodium 139 mmol/L (136-145) 02/26/19 07:20 Potassium 3.8 mmol/L (3.5-5.1) 02/26/19 07:20 Chloride 104 mmol/L (98-107) 02/26/19 07:20 Carbon Dioxide 27.4 mmol/L (21.0-32.0) 02/26/19 07:20 7.6 mmol/L (3-11) 02/26/19 07:20 BUN 6 mg/dL (7-18) L 02/26/19 07:20 0.69 mg/dL (0.70-1.30) L 02/26/19 07:20 >= 60.00 (mL/min/1.73m2) 02/26/19 07:20 Glucose 96 mg/dL (70-100) 02/26/19 07:20 0.9 mmol/L (0.6-1.4) 02/25/19 21:40 Calcium 8.7 mg/dL (8.5-10.1) 02/26/19 07:20 Magnesium 1.8 mg/dL (1.8-2.4) 02/25/19 21:40 1.2 mg/dL (0.2-1.0) H 02/26/19 07:20 AST 19 U/L (15-37) 02/26/19 07:20 ALT 28 U/L (12-78) 02/26/19 07:20 72 U/L (46-116) 02/26/19 07:20 < 0.05 ng/mL (0.00-0.06) 02/25/19 21:40 6.5 g/dL (6.4-8.2) 02/26/19 07:20 2.7 g/dL (3.4-5.0) L 02/26/19 07:20 43 U/L (73-393) L 02/25/19 21:40 TSH 3.27 uIU/mL (0.36-3.74) 02/26/19 07:20 Yellow (Yellow) 02/25/19 22:50 Clear (Clear) 02/25/19 22:50 7.0 (5-8) 02/25/19 22:50 Ur Specific [place] 1.010 (1.005-1.025) 02/25/19 22:50 Negative mg/dL (Negative) 02/25/19 22:50 15 mg/dL (Negative) H 02/25/19 22:50 Moderate (Negative) H 02/25/19 22:50 Negative (Negative) 02/25/19 22:50 Negative (Negative) 02/25/19 22:50 0.2 EU/dL (Up TO 0.2) 02/25/19 22:50 Ur Leukocyte Esterase Negative (Negative) 02/25/19 22:50 0-2 (0-2) 02/25/19 22:50 0-2 HPF (0-5) 02/25/19 22:50 Ur Epithelial Cells Negative HPF (Negative) 02/25/19 22:50 Negative HPF (Negative) 02/25/19 22:50 Negative HPF (Negative) 02/25/19 22:50 Negative LPF (Negative) 02/25/19 22:50 Negative (Negative) 02/25/19 22:50 Ur Culture Indicated? No 02/25/19 22:50 Negative mg/dL (Negative) 02/25/19 22:50
[2019-02-27] VITALS (9 sets, daily range): BP systolic 105–124; BP diastolic 65–77; PULSE 7–78; RESP 8–19; TEMP 36.4–37; O2SAT 93–97
[2019-02-27] MEDS: HYDROmorphone 2 MG/ML VIAL 1 MG IVP ×4 (00:26→06:23)
[2019-02-27] MEDS: Albuterol/Ipratropium 3 ML UPD VIAL UPD ×3 (00:26→12:08)
[2019-02-27] MEDS: Normal Saline 1,000 ML 150 ML IV ×3 (02:26→14:14)
[2019-02-27 07:26] LABS: Abs Immature Grans 0.03 k/cumm (0.0-0.09); Absolute Basophil Count 0.03 k/cumm (0.0-0.2); Absolute Eosinophil Count 0.26 k/cumm (0.0-0.7); Absolute Lymphocyte Count 2.09 k/cumm (1.2-3.4); Absolute Neutrophil Count 5.68 k/cumm (1.2-6.7); Basophils % 0.3; Eosinophils % 2.7; HCT 39.9 % (40.0-50.0); HGB 13.2 g/dL (13.5-17.5); Immature Grans % 0.3; Mean Corp. HGB Concentration 33.1 g/dL (32.0-36.0); Mean Corpuscular Hemoglobin 31.4 pg (27.0-33.0); Mean Platelet Volume 9.1 fL (8.0-11.0); Monocytes % 14.8; Neutrophils % 59.9; Platelet Count 291 x1000/uL (130-400); RBC Distribution Width 12.5 % (11.8-14.1); White Blood Cell Count 9.49 k/cumm (4.4-10.8)
[2019-02-27 07:48] LABS: Anion Gap 9.7 mmol/L (3-11); BUN 8 mg/dL (7-18); CO2 26.3 mmol/L (21.0-32.0); CREATININE 0.66 mg/dL (0.70-1.30); Calcium 8.9 mg/dL (8.5-10.1); Chloride 104 mmol/L (98-107); Glucose 89 mg/dL (70-100); Magnesium 1.8 mg/dL (1.8-2.4); Potassium 3.9 mmol/L (3.5-5.1); Sodium 140 mmol/L (136-145)
[2019-02-27] MEDS: Nicotine 21 MG/24 HR PATCH TD (09:33)
[2019-02-27] MEDS: Normal Saline Flush 10 ML SYR IVP (09:36)
[2019-02-27] MEDS: Pantoprazole 40 MG VIAL IVP (09:36)
--- NOTE | 2019-02-27 10:25 | PDOC.CMPRO ---
- If Service Date Differs Date of service: 02/27/19 Time of Service: 10:25 Care Management Progress Note S/O: A: Serafin is a 49 myear old man admitted to [facility] on 02/25/19 with a diagnosis of hematemesis P: Serafin is undergoing a medical workup to identify the nature of the mass in his esophagus as well as the cause of the hematemesis. His discharge plan remains uncertain at this time and is dependent on the findings from the workup. CM will continue to provide support to patient, fiancee and the discharge planning process.
--- NOTE | 2019-02-27 13:02 | ESO_PTH ---
PATIENT: JACKLYN SHIPLEY LOC: U#:[id number] AGE/SX: 49/M ROOM: MS.214 RE02/25/[address]: Safia Sung : 1970 BED: A DIS: 02/27/2019 SPEC #: [id number] RECD: 02/27/19 17:24 STATUS: BEN REQ #: [id number] [place]: 02/27/19 13:[address]: Pb Lala DEPT: Surgical Specimen RECD BY: Monie Stapleton ENTERED: 02/27/19 17:26 SP TYPE: Aly GUARDADO DR: Juhi Lassiter Quynhanh H Tissues: 1 - ESOPHAGUS BIOPSY Procedures: GROSS AND MICRO LEVEL 4 Comments: [id number]
--- NOTE | 2019-02-27 15:27 | W.PM.PROGNOT ---
Date of Service Date of service: 02/27/19 Time of Service: 08:00 Assessment and Plan (1) Esophageal mass: Current visit: Yes Status: Acute Continue NPO status. EGD scheduled for later today with Dr. Mcbride for further evaluation and for tissue biopsy. Subjective Interval history since last seen: Patient reports that he has been NPO over night and is eager to have the EGD today for further evaluation of the esophageal mass seen on CT. Denies abdominal pain, nausea or vomiting. Reports no difficulty with swallowing liquids or soft diet food items. Exam Const General: cooperative, healthy appearing and comfortable Orientation: alert and oriented x3 Resp Effort & Inspection: normal respiratory effort, no audible wheezes and no cough GI Inspection: normal to inspection and non-distended Palpation: soft, no guarding and nontender Auscultation: normal bowel sounds Objective Objective Clinical Data: Abnormal lab results 02/27/19 02/27/19 Range/Units 06:50 06:50 RBC 4.20 L (4.50-6.00) m/cumm Hgb 13.2 L (13.5-17.5) g/dL Hct 39.9 L (40.0-50.0) % Absolute Monocytes 1.40 H (0.11-0.7) k/cumm Creatinine 0.66 L (0.70-1.30) mg/dL Vital Signs Temperature 36.9 C 02/27/19 15:00 Temperature Source Tympanic 02/27/19 15:00 Pulse 77 02/27/19 15:00 Pulse Rhythm Regular 02/27/19 08:40 Pulse 80 02/25/19 23:10 Respiratory Rate 18 02/27/19 15:00 Respiratory Effort Non-Labored 02/27/19 08:40 Respiratory Depth Normal 02/27/19 08:40 Respiratory Pattern Normal 02/27/19 08:40 Blood Pressure 122/74 02/27/19 15:00 Blood Pressure Mean 114 02/25/19 23:01 Blood Pressure Position Supine 02/25/19 21:34 Pulse Oximetry 95 02/27/19 15:00 Oxygen Delivery Method Room Air 02/27/19 15:00 Oxygen Flow Rate 0 02/27/19 15:00 Pain Level 0 02/27/19 15:00 Comment 02/26/19 20:20 Intake & Output 02/26/19 02/27/1902/27/19 18:59 06:59 18:59 Intake Total 2072.5 / 4192.5 2120.0 / 4192.5 1840 / 1840 Output Total 300 / 300 Balance 2072.5 / 4192.5 2120.0 / 4192.5 1540 / 1540 Weight 107.4 kg Intake: IV 992.5 / 2872.5 1880.0 / 2872.5 1840 / 1840 Oral 1080 / 1320 240 / 1320 Output: Urine 300 / 300 Other: Urine Color Pale Yellow Urine Appearance Clear Clear Urine Odor Normal Comment patient uses toilet independently and said he has recently voided patient states he has been up independently and using the toilet frequently pT stated that he has been up to the toilet. Voiding Methods Toilet Toilet Urinal Laboratory Results WBC 9.49 k/cumm (4.4-10.8) 02/27/19 06:50 RBC 4.20 m/cumm (4.50-6.00) L 02/27/19 06:50 Hgb 13.2 g/dL (13.5-17.5) L 02/27/19 06:50 Hct 39.9 % (40.0-50.0) L 02/27/19 06:50 MCV 95.0 fL (80-95) 02/27/19 06:50 MCH 31.4 pg (27.0-33.0) 02/27/19 06:50 MCHC 33.1 g/dL (32.0-36.0) 02/27/19 06:50 RDW 12.5 % (11.8-14.1) 02/27/19 06:50 Plt Count 291 x1000/uL (130-400) 02/27/19 06:50 MPV 9.1 fL (8.0-11.0) 02/27/19 06:50 Immature Gran % 0.3 02/27/19 06:50 59.9 02/27/19 06:50 22.0 02/27/19 06:50 14.8 02/27/19 06:50 2.7 02/27/19 06:50 0.3 02/27/19 06:50 Absolute Neutrophils 5.68 k/cumm (1.2-6.7) 02/27/19 06:50 Absolute Lymphocytes 2.09 k/cumm (1.2-3.4) 02/27/19 06:50 Absolute Monocytes 1.40 k/cumm (0.11-0.7) H 02/27/19 06:50 Absolute Eosinophils 0.26 k/cumm (0.0-0.7) 02/27/19 06:50 Absolute Basophils 0.03 k/cumm (0.0-0.2) 02/27/19 06:50 Sodium 140 mmol/L (136-145) 02/27/19 06:50 Potassium 3.9 mmol/L (3.5-5.1) 02/27/19 06:50 Chloride 104 mmol/L (98-107) 02/27/19 06:50 Carbon Dioxide 26.3 mmol/L (21.0-32.0) 02/27/19 06:50 9.7 mmol/L (3-11) 02/27/19 06:50 BUN 8 mg/dL (7-18) 02/27/19 06:50 0.66 mg/dL (0.70-1.30) L 02/27/19 06:50 >= 60.00 (mL/min/1.73m2) 02/27/19 06:50 Glucose 89 mg/dL (70-100) 02/27/19 06:50 0.9 mmol/L (0.6-1.4) 02/25/19 21:40 Calcium 8.9 mg/dL (8.5-10.1) 02/27/19 06:50 Magnesium 1.8 mg/dL (1.8-2.4) 02/27/19 06:50 1.2 mg/dL (0.2-1.0) H 02/26/19 07:20 AST 19 U/L (15-37) 02/26/19 07:20 ALT 28 U/L (12-78) 02/26/19 07:20 72 U/L (46-116) 02/26/19 07:20 < 0.05 ng/mL (0.00-0.06) 02/25/19 21:40 6.5 g/dL (6.4-8.2) 02/26/19 07:20 2.7 g/dL (3.4-5.0) L 02/26/19 07:20 43 U/L (73-393) L 02/25/19 21:40 TSH 3.27 uIU/mL (0.36-3.74) 02/26/19 07:20 Yellow (Yellow) 02/25/19 22:50 Clear (Clear) 02/25/19 22:50 7.0 (5-8) 02/25/19 22:50 Ur Specific [place] 1.010 (1.005-1.025) 02/25/19 22:50 Negative mg/dL (Negative) 02/25/19 22:50 15 mg/dL (Negative) H 02/25/19 22:50 Moderate (Negative) H 02/25/19 22:50 Negative (Negative) 02/25/19 22:50 Negative (Negative) 02/25/19 22:50 0.2 EU/dL (Up TO 0.2) 02/25/19 22:50 Ur Leukocyte Esterase Negative (Negative) 02/25/19 22:50 0-2 (0-2) 02/25/19 22:50 0-2 HPF (0-5) 02/25/19 22:50 Ur Epithelial Cells Negative HPF (Negative) 02/25/19 22:50 Negative HPF (Negative) 02/25/19 22:50 Negative HPF (Negative) 02/25/19 22:50 Negative LPF (Negative) 02/25/19 22:50 Negative (Negative) 02/25/19 22:50 Ur Culture Indicated? No 02/25/19 22:50 Negative mg/dL (Negative) 02/25/19 22:50
--- NOTE | 2019-02-27 15:32 | ROE_ITS ---
DATE OF PROCEDURE: February 27, 2019 PREOPERATIVE DIAGNOSIS: 1. Dysphagia. 2. Epigastric pain. 3. Abnormal CT scan. POSTOPERATIVE DIAGNOSIS: Esophageal mass. PROCEDURE: Esophagoscopy with biopsy. SURGEON: Pushpa Mcbride M.D. ANESTHESIA: General. INDICATIONS: This is a 49-year-old man who presented to the Emergency Department with epigastric zurdo n for two weeks, as well as dysphagia and weight loss. He had a CT scan of the abdomen and pelvis th at showed a mass at the GE junction extending into the esophagus. The patient has never had a previo us upper endoscopy. He does report being able to tolerate clear liquids and soft foods. PROCEDURE: The patient was placed in the left lateral decubitus position. Propofol was titrated to sedation. The scope is advanced into the esophagus under direct visualization and down into the dist al esophagus, where a partially-obstructing mass was identified. This began at 34 cm and encompassed about half the circumference of the esophagus at this location. I could only advance the scope anot her centimeter to distally because the lesion became circumferential and significantly narrowed the e sophagus down to about 4 or 5 mm. This was very friable tissue. I biopsied the more proximal aspect several times. The scope was slowly withdrawn with no other esophageal lesions found. He tolerated the procedure well and was stable to recovery. A referral will be made to Oncology. He will need t o stay on a full liquid or very soft diet and should plan to take in a protein supplement, such as Soto ost, a few times a day. cc: Juhi Lassiter M.D.
--- NOTE | 2019-02-27 16:21 | W.PM.DS.N ---
Date of service: 02/27/19 Time of Service: 16:21 DS: Diagnosis Discharge Diagnosis (1) Esophageal mass: Status: Acute Asessment and Plan: highly suspicious for cancer; s/p EGD/biopsy (2) Hematemesis: Status: Acute (3) Alcohol use disorder, moderate, in early remission: Status: Chronic (4) HTN (hypertension), benign: Status: Chronic (5) Tobacco dependence: Status: Chronic (6) GERD (gastroesophageal reflux disease): Status: Chronic (7) Dysphagia: Status: Acute (8) Epigastric abdominal pain: Status: Acute Discharge Plan Disposition Patient Disposition: HOME Condition: Stable Discharge Details Chief Complaint: Abd Prob Clinical Impression: Esophageal mass Reason For Visit: HEMATEMESIS, ESOPHAGEAL MASS WITH DYSPHAGIA, DAILY Admit Date/Time: 02/25/19 23:52 Admit Provider: Pb Lala Attending Provider: Pb Lala Primary Care Provider: Juhi Lassiter V ED Provider: Tyler Casiano Hospital Course Hospital Course: Mr Tavarez is a 49 year old male with PMHx of HTN, GERD, tobacco dependence and alcohol dependence in remission, admitted to [facility] on 02/26/19 with hematemesis from what appeared to be an esophageal mass on CT. He was placed on IV PPI. He did not have recurrence of GI bleeding, and his hemoglobin, though decreased from 15.8 to 13.2, did not warrant a blood transfusion. He underwent an evaluation by general surgery and had an EGD on 02/27/19. By appearance, it was esophageal cancer. Biopsy was obtained. The scope could not be passed through, however, as his esophagus is only about 4-5 mm in diameter, consistent with his history of dysphagia for solids, it is our recommendation that the patient be discharged on full liquid diet with ensure/boost supplements with follow up with oncology and general surgery at [facility], to which he is being referred. The patient's pain control will be obtained with percocet. He is also being given a script for prn zofran. He is instructed not to drive or operate heavy machinery while taking narcotics. He is recommended to have outpatient PFT's - he does have bronchospasm and diagnosis of COPD needs to be ruled out. He is very responsive to bronchodilators on this admission - and we are discharging him home with a prescription for an albuterol inhaler. Time spent on care of patient as well as completion of discharge summary is 45 minutes. Home Meds and New Rx's Prescriptions: New oxycodone-acetaminophen 5-325 mg Tablet 1 - 2 tab PO Q4H PRN PRNQty: 60 RF: 0 nicotine 21 mg/24 hr Patch 24 Hour 21 mg transdermal DAILY Qty: 30 RF: 0 docusate sodium [Colace] 100 mg Capsule 100 mg PO BID Qty: 60 RF: 0 metoprolol tartrate 25 mg Tablet 25 mg PO Q8H Qty: 90 RF: 0 albuterol sulfate [ProAir HFA] 90 mcg/actuation HFA aerosol inhaler 2 puff IH Q6H PRN (Reason: shortness of breath or wheezing) Qty: 18 RF: 0 ondansetron 4 mg tablet,disintegrating 4 mg PO Q6H PRN (Reason: nausea and vomiting) Qty: 20 RF: 0 Changed pantoprazole 40 MG tablet,delayed release (DR/EC) 40 mg PO BID Qty: 60 RF: 0 Discontinued hydrochlorothiazide 25 mg Tablet RF: 0 Discharge Instructions Instructions: Esophageal Cancer (DC), Full Liquid Diet (DC) Additional Instructions: Return to the hospital with any fever, bleeding, chest pain, or shortness of breath. Avoid NSAIDS. Follow up with your new PCP, [facility] oncology and general surgery. Referrals: HEMATOLOGY/ONCOLOGY,[facility] [OTHER] - (new diagnosis of esophageal cancer) GENERAL SURG,[facility] [OTHER] - (New diagnosis of esophageal cancer) Jory Hannah [NURSE PRACTITIONER] - 03/09/19 2:45 pm Activity:: Activity as Tolerated Equipment/Supplies:: No Equipment Needed Diet:: full liquid Discharge Orders Discharge Orders: Discharge Order (Routine); Ordered 02/27/19 Ordered By: Safia Sung Other Ambulatory Orders: PFT ([facility]/DLCO/Volumes) (Outpt) (ONCE) Location: None Selected Ordered By: Safia Sung Exam Narrative Exam Narrative: General: very pleasant middle-aged male, A&Ox3, sitting up comfortably in bed HEENT: EOMI, MMM Heart: RRR, no m/r/g Lungs: very quiet rhonchi B GI: abdomen is soft, mildly tender in epigastrium Extremitis: no e/c/c BLE's, 2+ pedal pulses B DS: Data Vitals/I&O Vitals and I&O: Vital Signs Temperature 36.9 C 02/27/19 15:00 Temperature Source Tympanic 02/27/19 15:00 Pulse 77 02/27/19 15:00 Pulse Rhythm Regular 02/27/19 08:40 Pulse 80 02/25/19 23:10 Respiratory Rate 18 02/27/19 15:00 Respiratory Effort Non-Labored 02/27/19 08:40 Respiratory Depth Normal 02/27/19 08:40 Respiratory Pattern Normal 02/27/19 08:40 Blood Pressure 122/74 02/27/19 15:00 Blood Pressure Mean 114 02/25/19 23:01 Blood Pressure Position Supine 02/25/19 21:34 Pulse Oximetry 95 02/27/19 15:00 Oxygen Delivery Method Room Air 02/27/19 15:00 Oxygen Flow Rate 0 02/27/19 15:00 Pain Level 0 02/27/19 15:00 Comment 02/26/19 20:20 Intake & Output 02/26/19 02/27/19 02/27/19 23:59 11:59 23:59 Intake Total 3280.0 / 4480.0 1887.5 / 4129.5 2242 / 4129.5 Output Total 300 / 300 Balance 3280.0 / 4180.0 1887.5 / 3829.5 1942 / 3829.5 Weight 107.4 kg Intake: IV 1960.0 / 2960.0 1887.5 / 2752.5 865 / 2752.5 Oral 1320 / 1520 1377 / 1377 Output: Urine 300 / 300 Other: Urine Color Pale Yellow Urine Appearance Clear Clear Clear Urine Odor Normal Comment patient states he has been up independently and using the toilet frequently pT stated that he has been up to the toilet. Voiding Methods Toilet Toilet Toilet Completed studies during hospitalization [Text1]: CT abdomen/pelvis 02/25/19: 3.7 AP x 5.4 cm transverse by at least 7.5 cm mass-like lesion extending from the distal esophagus in to the stomach. This may represent neoplasm, infectious or inflammatory process cannot be excluded. 2. Hepatic steatosis CXR 02/25/19: No acute pulmonary process. Labs on day of discharge: Labs from last 24 hours 02/27/19 02/27/19 06:50 06:50 WBC 9.49 RBC 4.20 L Hgb 13.2 L Hct 39.9 L MCV 95.0 MCH 31.4 MCHC 33.1 RDW 12.5 Plt Count 291 MPV 9.1 Immature Gran % 0.3 Neutrophils % 59.9 Lymphocytes % 22.0 Monocytes % 14.8 Eosinophils % 2.7 Basophils % 0.3 Absolute Neutrophils 5.68 Absolute Lymphocytes 2.09 Absolute Monocytes 1.40 H Absolute Eosinophils 0.26 Absolute Basophils 0.03 Sodium 140 Potassium 3.9 Chloride 104 Carbon Dioxide 26.3 Anion Gap 9.7 BUN 8 Creatinine 0.66 L Estimated GFR/1.73 m2 >= 60.00 Glucose 89 Calcium 8.9 Magnesium 1.8 [facility] Medical History (Updated 02/27/19 @ 16:41 by Safia Sung MD) GERD (gastroesophageal reflux disease) (Chronic) HTN (hypertension), benign (Chronic) Tobacco dependence (Chronic) Family History (Updated 02/26/19 @ 11:54 by Miriam Carranza MD) Mother Cancer Social History (Updated 02/26/19 @ 11:52 by Miriam Carranza MD) Smoking/Tobacco Use Status: Current every day Tobacco Type: cigarettes Smoking packs per day: 0.5 Alcohol Intake: current Alcohol Intake frequency: 3 or more drinks per day Alcohol type: hard liquor Drug use: Occasionally Substance use type: marijuana Do you feel safe at home: Yes Do you feel safe in your relationship?: Yes
--- NOTE | 2019-02-27 21:04 | CMDISCH_ITS ---
- If Service Date Differs Date of service: 02/27/19 Time of Service: 21:04 LACE Index Scoring Tool - Questions: Length of Stay (in days): 2 Acuity (Admit via E.D.?): Yes E.D. Visits: 2 - Answers: Total Score: 7 Risk of Readmission: Low Risk Care Management Discharge Reason for Hospitalization: Hematemesis Discharge Plan: Serafin is being discharged home with no services. He will follow up with his PCP and Hematology/Oncology at [facility] [place] [place]. will transport via private vehicle. Patient/Family Education Needs: Discharge plan and follow up care.
== END 2019-02-27 17:28 | disposition home or self-care (01) | DRG 375 ==
LOC: ER 02-26 00:06 → MS 02-26 01:05
PROVIDERS: Surgery; Admitting Provider Family Medicine; Emergency Provider Emergency Medicine; PCP Family Medicine; Visit Provider Internal Medicine
PROC: 0DJ68ZZ Inspection of Stomach, Via Natural or Artificial Opening Endoscopic (ICD-10-PCS; CPT 43235; principal; 2019-02-27 12:30)
DX: C15.5 Malignant neoplasm of lower third of esophagus (principal); K92.0 Hematemesis; F17.210 Nicotine dependence, cigarettes, uncomplicated; F10.11 Alcohol abuse, in remission; R63.4 Abnormal weight loss; Z68.32 Body mass index [BMI] 32.0-32.9, adult; R13.10 Dysphagia, unspecified; R10.13 Epigastric pain; I10 Essential (primary) hypertension; K21.9 Gastro-esophageal reflux disease without esophagitis
CPT/HCPCS: 43239; 36415; 80048; 80053; 83690; 85027; 88305; 99223; 99232; 99239; 99252; 71046; 74177; 81003; 81015; 83605; 83735; 84443; 84484; 85014; 85018; 85025; 94640; 99217; J2250; J2405; J3010; J3490; J7620

== ENCOUNTER 2019-03-07 04:26 | Emergency (ER) | payer MEDICAID, SELFPAY ==
[2019-03-07 04:29] VITALS: BP 159/113; PULSE 88; RESP 20; TEMP 36.4; O2SAT 99
--- NOTE | 2019-03-07 04:34 | ED.GENADUL_ITS ---
Discharge Plan Disposition Patient Disposition: HOME Condition: Stable Discharge Details Chief Complaint: Abd Prob Clinical Impression: Esophageal mass Primary Care Provider: Juhi Lassiter V ED Provider: Handy Lantigua Home Meds and New Rx's Prescriptions: New oxycodone-acetaminophen 5-325 mg tablet 2 tab PO Q4H PRN (Reason: pain) Qty: 30 RF: 0 No Action oxycodone-acetaminophen 5-325 mg Tablet 1 - 2 tab PO Q4H PRN PRNQty: 60 RF: 0 nicotine 21 mg/24 hr Patch 24 Hour 21 mg transdermal DAILY Qty: 30 RF: 0 docusate sodium [Colace] 100 mg Capsule 100 mg PO BID Qty: 60 RF: 0 metoprolol tartrate 25 mg Tablet 25 mg PO BID Qty: 90 RF: 0 albuterol sulfate [ProAir HFA] 90 mcg/actuation HFA aerosol inhaler 2 puff IH Q6H PRN (Reason: shortness of breath or wheezing) Qty: 18 RF: 0 ondansetron 4 mg tablet,disintegrating 4 mg PO Q6H PRN (Reason: nausea and vomiting) Qty: 20 RF: 0 pantoprazole 40 MG tablet,delayed release (DR/EC) 40 mg PO BID Qty: 60 RF: 0 Discharge Instructions Additional Instructions: follow up with your primary care provider as scheduled on to discuss further pain medication prescriptions follow up with oncology at [facility] if you feel you are becoming more ill or having new or worsening pain return to the emergency department Medical Decision Making 49 yo male who was recently admitted after being found to have large esophageal mass extending into the stomach and is in the process of being referred to oncology at [facility] for further w/u and also just established with pcp and 1st appt on , who comes in as he has ran out of his pain medication. He has had pain in the epigastric area of his abdomen similar to when he presented here intially. The oxycodone/apap did help the pain but he has been requiring the 2 tabs every 4 hours as prescribed and ran out. He denies new pain, vomit of blood. He arrives with stable vitals, has mild epigastric pain and no distention, no guarding, negative marquez's sign. I reviewed his chart and he was prescribed 60 tabs on 02/27 and was given as 1-2 tabs q4 hours so is taking this appropriately. He declined additional w/u at this time given pain is the same which I feel is reasonable. Will prescribe enough for his likely cancer related pain to get him to his pcp appt and advised return if worsening or new pain Differential Diagnosis cancer related pain, achalasia Medical Records Medical records reviewed: Yes I reviewed the patient's medical records. HPI General Mode of arrival: ambulatory . Date/Time Provider Initiated Documentation: 03/07/19 04:27 . Limitations to Documentation: no limitations . Information obtained by: patient . History of Present Illness 49 year old M presents to the emergency department with the chief complaint of abdominal pain, described as moderate, Quality is described as stabbing and aching, and is localized to the abdomen. Patient reports no radiation. Patient started experiencing this week(s) (1) and it has been constant. Patient notes no other symptoms.. Related Data Home Medications Medication Instructions Recorded Confirmed albuterol sulfate [ProAir HFA] 2 puff IH Q6H PRN #18 gm 02/27/19 03/07/19 docusate sodium [Colace] 100 mg PO BID #60 cap 02/27/19 03/07/19 metoprolol tartrate 25 mg PO BID #90 tab 02/27/19 03/07/19 nicotine 21 mg TRANSDERMAL DAILY #30 ea 02/27/19 03/07/19 ondansetron 4 mg PO Q6H PRN #20 tab 02/27/19 03/07/19 oxycodone-acetaminophen 1 - 2 tab PO Q4H PRN PRN #60 tab 02/27/19 03/07/19 pantoprazole 40 mg PO BID #60 tab 02/27/19 03/07/19 oxycodone-acetaminophen 2 tab PO Q4H PRN #30 tab 03/07/19 Previous Rx's Medication Instructions Recorded albuterol sulfate [ProAir HFA] 2 puff IH Q6H PRN #18 gm 02/27/19 docusate sodium [Colace] 100 mg PO BID #60 cap 02/27/19 metoprolol tartrate 25 mg PO BID #90 tab 02/27/19 nicotine 21 mg TRANSDERMAL DAILY #30 ea 02/27/19 ondansetron 4 mg PO Q6H PRN #20 tab 02/27/19 oxycodone-acetaminophen 1 - 2 tab PO Q4H PRN PRN #60 tab 02/27/19 pantoprazole 40 mg PO BID #60 tab 02/27/19 oxycodone-acetaminophen 2 tab PO Q4H PRN #30 tab 03/07/19 Allergies Allergy/AdvReac Type Severity Reaction Status Date / Time aspirin AdvReac Unverified 03/07/19 04:34 General Stated Complaint: Abd Prob JAXSON: 3 Review of Systems Review of Systems All systems reviewed & are unremarkable except as noted in HPI and below Constitutional Denies chills, Denies fever(s) and Denies weakness Cardiovascular Denies chest pain and Denies dyspnea Respiratory Denies cough and Denies dyspnea Gastrointestinal Denies nausea and Denies vomiting Integumentary/Breasts Denies rash Neurologic Denies weakness [facility] Medical History (Updated 02/27/19 @ 16:41 by Safia Sung MD) GERD (gastroesophageal reflux disease) (Chronic) HTN (hypertension), benign (Chronic) Tobacco dependence (Chronic) Family History (Updated 02/26/19 @ 11:54 by Miriam Carranza MD) Mother Cancer Social History (Updated 02/26/19 @ 11:52 by Miriam Carranza MD) Smoking/Tobacco Use Status: Former Tobacco Use Alcohol Intake: former Drug use: Occasionally Substance use type: marijuana Do you feel safe at home: Yes Do you feel safe in your relationship?: Yes Exam Const General: no acute distress Orientation: alert HENMT Head: normal to inspection Ears: external ears normal General nose exam: external nose normal Mouth: moist mucous membranes Eyes General: appearance normal, both eyes and all related structures Neck Neck: normal visual inspection Resp Effort & Inspection: normal respiratory effort and able to speak in complete sentences Cardio Rate: regular rate GI Palpation: soft Skin General skin exam: no rashes or lesions noted Neuro General: alert and oriented x3 Extrem General: normal to inspection Psych Mental Status: mental status grossly normal Course Vital Signs Temperature 36.4 C L 03/07/19 04:29 Pulse 88 03/07/19 04:29 Respiratory Rate 20 03/07/19 04:29 Blood Pressure 159/113 H 03/07/19 04:29 Pulse Oximetry 99 03/07/19 04:29 Temperature 36.4 C L 03/07/19 04:29 Temperature Source Skin 03/07/19 04:29 Pulse 88 03/07/19 04:29 Respiratory Rate 20 03/07/19 04:29 Blood Pressure 159/113 H 03/07/19 04:29 Blood Pressure Position Sitting 03/07/19 04:29 Pulse Oximetry 99 03/07/19 04:29 Oxygen Delivery Method Room Air 03/07/19 04:29 Oxygen Flow Rate 0 03/07/19 04:29 Pain Level 9 03/07/19 04:29
[2019-03-07] MEDS: oxyCODONE 5 mg/Acetaminophen 325 mg TAB 4 TAB PO (04:40)
== END 2019-03-07 04:40 | disposition home or self-care (01) ==
PROVIDERS: Emergency Provider Emergency Medicine; PCP Family Medicine
DX: K22.8 Other specified diseases of esophagus (principal); G89.3 Neoplasm related pain (acute) (chronic); I10 Essential (primary) hypertension
CPT/HCPCS: 99283

== ENCOUNTER 2019-03-16 16:23 | Emergency (ER) | payer MEDICAID, SELFPAY ==
[2019-03-16] VITALS (35 sets, daily range): BP systolic 139–173; BP diastolic 92–113; PULSE 84–98; RESP 6–40; TEMP 36.8; O2SAT 85–100
--- NOTE | 2019-03-16 16:41 | DI.RAD_ITS ---
SYMPTOM/DIAGNOSIS: CHEST PAIN PORTABLE AP CHEST: 03/16 1656 hours The heart is not enlarged. The lungs are clear. No evidence of acute process.
[2019-03-16] MEDS: MORPHine 10 MG/ML VIAL 4 MG IVP (16:50)
--- NOTE | 2019-03-16 16:50 | W.ED.GENAD ---
Discharge Plan Discharge Details Chief Complaint: Chest Pain Primary Care Provider: Juhi Lassiter V ED Provider: Jazmyn Nuno Home Meds and New Rx's Prescriptions: No Action oxycodone-acetaminophen 5-325 mg tablet 2 tab PO Q4H PRN (Reason: pain) Qty: 30 RF: 0 oxycodone-acetaminophen 5-325 mg Tablet 1 - 2 tab PO Q4H PRN PRNQty: 60 RF: 0 nicotine 21 mg/24 hr Patch 24 Hour 21 mg transdermal DAILY Qty: 30 RF: 0 docusate sodium [Colace] 100 mg Capsule 100 mg PO BID Qty: 60 RF: 0 metoprolol tartrate 25 mg Tablet 25 mg PO BID Qty: 90 RF: 0 albuterol sulfate [ProAir HFA] 90 mcg/actuation HFA aerosol inhaler 2 puff IH Q6H PRN (Reason: shortness of breath or wheezing) Qty: 18 RF: 0 ondansetron 4 mg tablet,disintegrating 4 mg PO Q6H PRN (Reason: nausea and vomiting) Qty: 20 RF: 0 pantoprazole 40 MG tablet,delayed release (DR/EC) 40 mg PO BID Qty: 60 RF: 0 Discharge Data Discharge Date/Time-TO BE ENTERED AT DEPARTURE: 03/16/19 19:55 Medical Decision Making Michael Tavarez is a 49-year-old man with a history of GERD, hypertension, recently diagnosed esophageal cancer who presented to the emergency department with right chest and upper abdominal pain throughout the day. On exam patient appears uncomfortable but nontoxic. Cardiopulmonary exam is benign. Abdomen is soft and nontender. Concern for complications of stent placement, pneumothorax, pulmonary embolism, other. Doubt ACS. Exam/history is not consistent with acute aortic process. Plan for EKG, portable chest x-ray, screening labs, IV fluid, IV pain control. CT chest/abdomen. 17:13: Portable chest x-ray concerning for free air under the diaphragm. Surgery paged. CT ordered. 17:15: Discussed Pt with Dr. Dash of surgery, who stated that patient should be treated for perforation at [facility] and not at [facility]. 17:16: Discussed patient with [facility] transfer center for consultation and transfer. Awaiting callback. CT chest/abdomen/pelvis negative for free air or other acute process, shows fluid in the distal esophagus putting the patient at risk of aspiration. Images sent to [facility]. Labs nondiagnostic. 18:20: I discussed patient presentation results with Dr. Butcher of surgery, who also reviewed CT images. Dr. Butcher accepts patient for ED to ED transfer for further evaluation of pain. On reevaluation, patient feeling somewhat improved but does have continued abdominal pain. No nausea. Patient is amenable to transfer to [facility]. Patient remains hemodynamically stable. Patient transferred out of the emergency department by medics without issue. Clinical impression, chest pain, abdominal pain Disposition: Transfer to [facility] Medical Records Medical records reviewed: Yes I reviewed the patient's medical records. Imaging Data Radiologic Study: Attestation: I personally reviewed and interpreted this imaging study as follows: Radiologist's impression: EXAM: XR Chest, 1 View EXAM DATE/TIME: 03/16/2019 4:43 PM CLINICAL HISTORY: 49 years old, male; Shortness of breath TECHNIQUE: Imaging protocol: XR of the chest, 1 view. COMPARISON: CR XR CHEST 2V PA LATERAL 02/25/2019 10:49 PM FINDINGS: Lungs: Small new left retrocardiac opacity, laterally. This could represent a focus of atelectasis. Infection not excluded. Pleural space: No pneumothorax. No pleural effusion. Heart/Mediastinum: Cardiomediastinal contours and hilar shadows are unchanged. Diaphragm: Mild elevation of the left hemidiaphragm. Upper abdomen: There is lucency under the right hemidiaphragm, worrisome for free air. A CT scan could be considered for further evaluation. Bones/joints: Bony structures unchanged. IMPRESSION: 1.There is lucency under the right hemidiaphragm, worrisome for free air. A CT scan could be considered for further evaluation. 2.Small new left retrocardiac opacity. This could represent a focus of atelectasis. Infection not excluded. 3. other findings/details as above. EXAM: CT Chest With Contrast EXAM DATE/TIME: 03/16/2019 5:21 PM CLINICAL HISTORY: 49 years old, male; Abdominal pain; Localized; Upper; Pleuordynia; Prior surgery; Surgery date: 3-7 days post-operative; Surgery type: Egd for stent placement; Patient HX: Known esophageal CA TECHNIQUE: Imaging protocol: Axial computed tomography images of the chest with intravenous contrast. Coronal and sagittal reformatted images were created and reviewed. COMPARISON: CT ABDOMEN PELVIS W 02/25/2019 10:36 PM FINDINGS: Lungs: Unremarkable. No consolidation. No masses. Pleural space: Unremarkable. No pneumothorax. No pleural effusion. Heart: Unremarkable. No cardiomegaly. No pericardial effusion. Mediastinum: Distal esophageal malignancy has been treated with esophageal stent. There is fluid within the distal esophagus which makes the patient will level II aspiration. Aorta: Unremarkable. No aortic aneurysm. Lymph nodes: Unremarkable. No enlarged lymph nodes. Bones/joints: Unremarkable. No acute fracture. Soft tissues: Unremarkable. IMPRESSION: Distal esophageal malignancy has been treated with esophageal stent. There is fluid within the distal esophagus which makes the patient will level II aspiration. EXAM: CT Abdomen and Pelvis With Contrast EXAM DATE/TIME: 03/16/2019 5:21 PM CLINICAL HISTORY: 49 years old, male; Abdominal pain; Localized; Upper; Pleuordynia; Prior surgery; Surgery date: 3-7 days post-operative; Surgery type: Egd for stent placement; Patient HX: Known esophageal CA TECHNIQUE: Imaging protocol: Axial computed tomography images of the abdomen and pelvis with intravenous contrast. Coronal and sagittal reformatted images were created and reviewed. COMPARISON: CT ABDOMEN PELVIS W 02/25/2019 10:36 PM FINDINGS: Liver: Normal. No mass. Gallbladder and bile ducts: Normal. No calcified stones. No ductal dilation. Pancreas: Normal. No ductal dilation. Spleen: Normal. No splenomegaly. Adrenals: Normal. No mass. Kidneys and ureters: Normal. No hydronephrosis. Stomach and bowel: Normal. No obstruction. No mucosal thickening. Appendix: No evidence of appendicitis. Intraperitoneal space: Normal. No free air. No significant fluid collection. Vasculature: Normal. No abdominal aortic aneurysm. Lymph nodes: Normal. No enlarged lymph nodes. Bladder: Unremarkable as visualized. Reproductive: Unremarkable as visualized. Bones/joints: No acute fracture. No dislocation. Soft tissues: Left inguinal hernia containing fat, uncomplicated. IMPRESSION: No acute finding. Lab Data Lab results reviewed: Yes I reviewed the patient's lab results. Laboratory Tests Range/Units 03/16/19 03/16/19 16:41 16:41 WBC (4.4-10.8) k/cumm 13.40 H RBC (4.50-6.00) m/cumm 4.95 Hgb (13.5-17.5) g/dL 15.3 Hct (40.0-50.0) % 45.0 MCV (80-95) fL 90.9 MCH (27.0-33.0) pg 30.9 MCHC (32.0-36.0) g/dL 34.0 RDW (11.8-14.1) % 12.2 Plt Count (130-400) x1000/uL 597 H D MPV (8.0-11.0) fL 9.4 Immature Gran % 0.4 Neutrophils % 74.7 Lymphocytes % 12.0 Monocytes % 12.4 Eosinophils % 0.4 Basophils % 0.1 Absolute Neutrophils (1.2-6.7) k/cumm 10.01 H Absolute Lymphocytes (1.2-3.4) k/cumm 1.61 Absolute Monocytes (0.11-0.7) k/cumm 1.66 H Absolute Eosinophils (0.0-0.7) k/cumm 0.05 Absolute Basophils (0.0-0.2) k/cumm 0.01 Differential Comment Agrees w/ instrument RBC Morphology Normal Sodium (136-145) mmol/L 136 Potassium (3.5-5.1) mmol/L 4.4 Chloride (98-107) mmol/L 96 L Carbon Dioxide (21.0-32.0) mmol/L 30.7 Anion Gap (3-11) mmol/L 9.3 BUN (7-18) mg/dL 6 L Creatinine (0.70-1.30) mg/dL 0.65 L Estimated GFR/1.73 m2 (mL/min/1.73m2) >= 60.00 Glucose (70-100) mg/dL 105 H Calcium (8.5-10.1) mg/dL 10.4 H Magnesium (1.8-2.4) mg/dL 1.6 L Total Bilirubin (0.2-1.0) mg/dL 0.8 AST (15-37) U/L 8 L ALT (12-78) U/L 19 Alkaline Phosphatase (46-116) U/L 75 Troponin I (0.00-0.06) ng/mL < 0.05 Total Protein (6.4-8.2) g/dL 8.0 Albumin (3.4-5.0) g/dL 3.1 L Lipase (73-393) U/L 88 ECG Data Attestation: I personally reviewed and interpreted this ECG (s) as follows: Interpretation: EKG shows sinus rhythm 94, left axis, no STEMI, no significant change from prior 02/25/2019. Nondiagnostic EKG HPI General Mode of arrival: ambulatory. Date/Time Provider Initiated Documentation: 03/16/19 16:26. Limitations to Documentation: no limitations. Information obtained by: patient, family, RN notes reviewed and old records reviewed. HPI Narrative: Michael Tavarez is a 49-year-old man with a history of GERD, hypertension, recently diagnosed esophageal cancer presenting to the emergency department with chest pain and abdominal pain. Patient was diagnosed with esophageal cancer approximately 2 weeks ago. On 03/14/2019 he underwent EGD and had a esophageal stent placed. Patient reports that last night he had some pain in his right chest and his upper abdomen that seemed to improve. Patient reports that this morning pain had recurred, and has been persistent and worsening throughout the day. Patient reports that he has also had several episodes of vomiting today. Has been constipated. pain is worse with deep breath, but he denies shortness of breath or cough. He denies any other pain, fever, diarrhea. Patient reports that he took 6 Percocet today for the pain, which did not help his symptoms. Patient reports that he has not had anything to eat for the past 2 days. Related Data Home Medications Medication Instructions Recorded Confirmed albuterol sulfate [ProAir HFA] 2 puff IH Q6H PRN #18 gm 02/27/19 03/16/19 docusate sodium [Colace] 100 mg PO BID #60 cap 02/27/19 03/16/19 metoprolol tartrate 25 mg PO BID #90 tab 02/27/19 03/16/19 nicotine 21 mg TRANSDERMAL DAILY #30 ea 02/27/19 03/16/19 ondansetron 4 mg PO Q6H PRN #20 tab 02/27/19 03/16/19 oxycodone-acetaminophen 1 - 2 tab PO Q4H PRN PRN #60 tab 02/27/19 03/16/19 pantoprazole 40 mg PO BID #60 tab 02/27/19 03/16/19 oxycodone-acetaminophen 2 tab PO Q4H PRN #30 tab 03/07/19 03/16/19 Previous Rx's Medication Instructions Recorded albuterol sulfate [ProAir HFA] 2 puff IH Q6H PRN #18 gm 02/27/19 docusate sodium [Colace] 100 mg PO BID #60 cap 02/27/19 metoprolol tartrate 25 mg PO BID #90 tab 02/27/19 nicotine 21 mg TRANSDERMAL DAILY #30 ea 02/27/19 ondansetron 4 mg PO Q6H PRN #20 tab 02/27/19 oxycodone-acetaminophen 1 - 2 tab PO Q4H PRN PRN #60 tab 02/27/19 pantoprazole 40 mg PO BID #60 tab 02/27/19 oxycodone-acetaminophen 2 tab PO Q4H PRN #30 tab 03/07/19 Allergies Allergy/AdvReac Type Severity Reaction Status Date / Time aspirin AdvReac Unverified 03/16/19 16:31 General Stated Complaint: Chest Pain JAXSON: 2 Review of Systems Review of Systems Constitutional: denies fevers Eyes: denies eye pain ENT: denies facial pain, dental pain, sore throat Cardiovascular: denies edema, reports chest pain Respiratory: denies SOB, cough GI: denies diarrhea, hematemesis, reports abdominal pain, vomiting : denies flank pain MSK: denies back pain, neck pain, arthralgias, myalgias Skin: denies rash Neuro: denies headaches, numbness, weakness PFSH Medical History GERD (gastroesophageal reflux disease) (Chronic) HTN (hypertension), benign (Chronic) Tobacco dependence (Chronic) Surgical History (Updated 03/07/19 @ 04:35 by Jazmyn Yang) H/O lateral meniscus repair of left knee (Acute) Family History (Updated 02/26/19 @ 11:54 by Miriam Carranza MD) Mother Cancer Social History Smoking/Tobacco Use Status: Former Tobacco Use Alcohol Intake: former Drug use: Occasionally Substance use type: marijuana Do you feel safe at home: Yes Do you feel safe in your relationship?: Yes Exam Narrative Exam Narrative: Constitutional: well and [id number], appears uncomfortable, pleasant, conversing normally HENT: head atraumatic/normocephalic/normal inspection, mucous membranes moist Eyes: conjunctiva normal, sclera normal, pupils 3mm b/l Neck: no stridor, normal ROM, trachea midline Chest: normal inspection Resp: normal work of breathing, LCTAB Cardio: normal rate, normal rhythm, no murmur appreciated GI: abdomen soft, non-tender, non-distended Skin: warm, dry, normal color, no rash Neuro: alert, not altered, grossly non-focal, normal tone Ext: no edema Psych: normal mood, normal affect, normal behavior Course Vital Signs Temperature 36.8 C 03/16/19 16:28 Pulse 98 H 03/16/19 16:28 Respiratory Rate 19 03/16/19 16:28 Blood Pressure 162/107 H 03/16/19 16:28 Pulse Oximetry 100 03/16/19 16:28 Temperature 36.8 C 03/16/19 16:28 Temperature Source Temporal Artery Scan 03/16/19 16:28 Pulse 98 H 03/16/19 16:28 Respiratory Rate 20 03/16/19 16:32 Respiratory Effort 03/16/19 16:32 Respiratory Depth Normal 03/16/19 16:32 Respiratory Pattern Normal 03/16/19 16:32 Blood Pressure 162/107 H 03/16/19 16:28 Blood Pressure Position Sitting 03/16/19 16:28 Pulse Oximetry 100 03/16/19 16:28 Oxygen Delivery Method Room Air 03/16/19 16:28 Oxygen Flow Rate 0 03/16/19 16:28 Pain Level 10 03/16/19 16:28
[2019-03-16] MEDS: Ondansetron 4 MG/2 ML VIAL IVP (16:57)
[2019-03-16 17:04] LABS: Abs Immature Grans 0.05 k/cumm (0.0-0.09); Absolute Eosinophil Count 0.05 k/cumm (0.0-0.7); Absolute Lymphocyte Count 1.61 k/cumm (1.2-3.4); Absolute Monocyte Count 1.66 k/cumm (0.11-0.7); Absolute Neutrophil Count 10.01 k/cumm (1.2-6.7); Basophils % 0.1; Eosinophils % 0.4; HGB 15.3 g/dL (13.5-17.5); Immature Grans % 0.4; Mean Corpuscular Hemoglobin 30.9 pg (27.0-33.0); Mean Corpuscular Volume 90.9 fL (80-95); Mean Platelet Volume 9.4 fL (8.0-11.0); Monocytes % 12.4; Neutrophils % 74.7; RBC 4.95 m/cumm (4.50-6.00); RBC Distribution Width 12.2 % (11.8-14.1)
[2019-03-16 17:05] LABS: Absolute Basophil Count 0.01 k/cumm (0.0-0.2)
[2019-03-16 17:06] LABS: Platelet Count 597 x1000/uL (130-400)
--- NOTE | 2019-03-16 17:09 | DI.VRAD_ITS ---
Addendum created by Caroline Hong MD on 03/16/2019 5:12:08 PM EDT THIS REPORT CONTAINS FINDINGS THAT MAY BE CRITICAL TO PATIENT CARE. The findings were verbally communicated via telephone conference with JESUS LOPEZ at 5:12 PM EDT on 03/16/2019. The findings were acknowledged and understood. Initial report created on 03/16/2019 5:09:30 PM EDT EXAM: XR Chest, 1 View EXAM DATE/TIME: 03/16/2019 4:43 PM CLINICAL HISTORY: 49 years old, male; Shortness of breath TECHNIQUE: Imaging protocol: XR of the chest, 1 view. COMPARISON: CR XR CHEST 2V PA LATERAL 02/25/2019 10:49 PM FINDINGS: Lungs: Small new left retrocardiac opacity, laterally. This could represent a focus of atelectasis. Infection not excluded. Pleural space: No pneumothorax. No pleural effusion. Heart/Mediastinum: Cardiomediastinal contours and hilar shadows are unchanged. Diaphragm: Mild elevation of the left hemidiaphragm. Upper abdomen: There is lucency under the right hemidiaphragm, worrisome for free air. A CT scan could be considered for further evaluation. Bones/joints: Bony structures unchanged. IMPRESSION: 1.There is lucency under the right hemidiaphragm, worrisome for free air. A CT scan could be considered for further evaluation. 2.Small new left retrocardiac opacity. This could represent a focus of atelectasis. Infection not excluded. 3. other findings/details as above. Dictated and Authenticated by: Caroline Hong MD. Ordering:HELLEN Eldridge MD
--- NOTE | 2019-03-16 17:20 | DI.CT_ITS ---
SYMPTOM/DIAGNOSIS: CHEST AND ABD PAIN, KPOSSIBLE PERF FROM RECENT EGD CHEST, ABDOMEN AND PELVIS CT: 03/16 CT examination of the chest, abdomen and pelvis was performed with a bolus infusion of 100 cc Omnipaque 350. The patient has a history of esophagogastric stent placed for esophageal malignancy. The stent is visualized and is fluid filled. There is gas in the esophagus adjacent to the stent. No mediastinal leakage of fluid or gas identified. No mediastinal abscess or gross adenopathy. Distal esophageal mass again noted with mild adenopathy in fat adjacent to the mass. Prominence of upper abdominal collateral veins noted. Liver and spleen are unremarkable in appearance. Pancreas appears intact. No biliary dilatation or gallbladder abnormality. Adrenals and kidneys are normal. No significant retroperitoneal adenopathy. Abdominal aorta is of normal diameter and no major vascular abnormality is seen. No free intraperitoneal air. The lungs are clear. No pleural effusion or pleural based mass. Tracheobronchial tree appears intact. No evidence of bowel obstruction or bowel perforation, Appendix is normal. No significant abdominal wall hernia. Thoracic and abdominal aorta and major branches appear normal. No evidence of pulmonary embolic disease. Adrenals and kidneys appear normal. No evidence of urinary tract obstruction or calcification. No bony lesion in the region surveyed of the chest, abdomen or pelvis. CONCLUSION: Esophageal stent in position with distal esophageal mass as described above. No evidence of acute process.
[2019-03-16 17:26] LABS: Diff Comment Agrees w/ Instrument; RBC Morphology Normal
[2019-03-16 17:32] LABS: ALT 19 U/L (12-78); AST 8 U/L (15-37); Albumin 3.1 g/dL (3.4-5.0); Alkaline Phosphatase 75 U/L (46-116); Anion Gap 9.3 mmol/L (3-11); BUN 6 mg/dL (7-18); Bilirubin, Total 0.8 mg/dL (0.2-1.0); CO2 30.7 mmol/L (21.0-32.0); CREATININE 0.65 mg/dL (0.70-1.30); Calcium 10.4 mg/dL (8.5-10.1); Chloride 96 mmol/L (98-107); Glucose 105 mg/dL (70-100); Lipase 88 U/L (73-393); Magnesium 1.6 mg/dL (1.8-2.4); Potassium 4.4 mmol/L (3.5-5.1); Sodium 136 mmol/L (136-145)
[2019-03-16] MEDS: Omnipaque 350 MG/ML 100 ML BTL IJ (17:42)
[2019-03-16 17:45] LABS: Troponin I < 0.05 ng/mL (0.00-0.06)
--- NOTE | 2019-03-16 18:15 | DI.VRAD_ITS ---
EXAM: CT Chest With Contrast EXAM DATE/TIME: 03/16/2019 5:21 PM CLINICAL HISTORY: 49 years old, male; Abdominal pain; Localized; Upper; Pleuordynia; Prior surgery; Surgery date: 3-7 days post-operative; Surgery type: Egd for stent placement; Patient HX: Known esophageal CA TECHNIQUE: Imaging protocol: Axial computed tomography images of the chest with intravenous contrast. Coronal and sagittal reformatted images were created and reviewed. COMPARISON: CT ABDOMEN PELVIS W 02/25/2019 10:36 PM FINDINGS: Lungs: Unremarkable. No consolidation. No masses. Pleural space: Unremarkable. No pneumothorax. No pleural effusion. Heart: Unremarkable. No cardiomegaly. No pericardial effusion. Mediastinum: Distal esophageal malignancy has been treated with esophageal stent. There is fluid within the distal esophagus which makes the patient will level II aspiration. Aorta: Unremarkable. No aortic aneurysm. Lymph nodes: Unremarkable. No enlarged lymph nodes. Bones/joints: Unremarkable. No acute fracture. Soft tissues: Unremarkable. IMPRESSION: Distal esophageal malignancy has been treated with esophageal stent. There is fluid within the distal esophagus which makes the patient will level II aspiration. EXAM: CT Abdomen and Pelvis With Contrast EXAM DATE/TIME: 03/16/2019 5:21 PM CLINICAL HISTORY: 49 years old, male; Abdominal pain; Localized; Upper; Pleuordynia; Prior surgery; Surgery date: 3-7 days post-operative; Surgery type: Egd for stent placement; Patient HX: Known esophageal CA TECHNIQUE: Imaging protocol: Axial computed tomography images of the abdomen and pelvis with intravenous contrast. Coronal and sagittal reformatted images were created and reviewed. COMPARISON: CT ABDOMEN PELVIS W 02/25/2019 10:36 PM FINDINGS: Liver: Normal. No mass. Gallbladder and bile ducts: Normal. No calcified stones. No ductal dilation. Pancreas: Normal. No ductal dilation. Spleen: Normal. No splenomegaly. Adrenals: Normal. No mass. Kidneys and ureters: Normal. No hydronephrosis. Stomach and bowel: Normal. No obstruction. No mucosal thickening. Appendix: No evidence of appendicitis. Intraperitoneal space: Normal. No free air. No significant fluid collection. Vasculature: Normal. No abdominal aortic aneurysm. Lymph nodes: Normal. No enlarged lymph nodes. Bladder: Unremarkable as visualized. Reproductive: Unremarkable as visualized. Bones/joints: No acute fracture. No dislocation. Soft tissues: Left inguinal hernia containing fat, uncomplicated. IMPRESSION: No acute finding. Dictated and Authenticated by: Zulay Sands MD. Ordering:HELLEN Eldridge MD
[2019-03-16] MEDS: HYDROmorphone 2 MG/ML VIAL 1 MG IVP (18:33)
== END 2019-03-16 19:55 ==
PROVIDERS: Emergency Provider Student in an Organized Health Care Education/Training Program; PCP Family Medicine
DX: R07.9 Chest pain, unspecified (principal); R10.30 Lower abdominal pain, unspecified; R12 Heartburn; C15.5 Malignant neoplasm of lower third of esophagus; Y83.1 Surgical operation with implant of artificial internal device as the cause of abnormal reaction of the patient, or of later complication, without mention of misadventure at the time of the procedure; I10 Essential (primary) hypertension; Z96.89 Presence of other specified functional implants
CPT/HCPCS: 36415; 74177; 80053; 83690; 93005; 96374; 96375; 99285; 71045; 71260; 83735; 84484; 85025; 93010; J2270; J2405; J3490

== ENCOUNTER 2019-04-11 07:47 | Day surgery (SDC) | payer MEDICAID, SELFPAY ==
[2019-04-11 08:20] VITALS: BP 112/74; PULSE 77; RESP 16; TEMP 36.1; O2SAT 98
[2019-04-11] MEDS: Lactated Ringers 1,000 ML 80 ML IV (08:50)
[2019-04-11] MEDS: ceFAZolin 2 GM/50 ML BAG IVPB (11:30)
[2019-04-11] MEDS: Lidocaine 1% Multi-Dose 50 ML VIAL (11:50)
[2019-04-11] MEDS: Normal Saline 50 ML (12:00)
--- NOTE | 2019-04-11 12:00 | DI.RAD_ITS ---
SYMPTOM/DIAGNOSIS: PORT PLACEMENT PORTABLE AP CHEST: There is a Portacath in place via right subclavian root, the tip of which lies at the junction of SVC and right atrium. Lungs are clear and well expanded. No pleural effusion is seen. Cardiac size within normal limits.
--- NOTE | 2019-04-11 12:16 | DI.RAD_ITS ---
SYMPTOM/DIAGNOSIS: PORT PLACEMENT. C-ARM FLUOROSCOPY 04/11 Fluoroscopy Time: 13.4 sec 1.3 mgy C-arm fluoroscopy was utilized by Dr. Mcbride during reported emmett cath insertion. Hard copies show guidewire and catheter overlying the SVC, the tips of the guidewire and catheter are not visualized.
--- NOTE | 2019-04-11 12:30 | W.PM.DSUDISC ---
Discharge Plan Disposition Patient Disposition: HOME Condition: Good Discharge Details Reason For Visit: Mediport placement Attending Provider: Pushpa Mcbride Primary Care Provider: Juhi Lassiter V Home Meds and New Rx's Prescriptions: Continued nicotine 21 mg/24 hr Patch 24 Hour 14 mg transdermal DAILY Qty: 30 RF: 0 docusate sodium [Colace] 100 mg Capsule 100 mg PO BID Qty: 60 RF: 0 metoprolol tartrate 25 mg Tablet 25 mg PO BID Qty: 90 RF: 0 albuterol sulfate [ProAir HFA] 90 mcg/actuation HFA aerosol inhaler 2 puff IH BID Qty: 18 RF: 0 ondansetron 4 mg tablet,disintegrating 4 mg PO Q6H PRN (Reason: nausea and vomiting) Qty: 20 RF: 0 pantoprazole 40 MG tablet,delayed release (DR/EC) 40 mg PO BID Qty: 60 RF: 0 hydromorphone [Dilaudid] 4 mg Tablet 4 mg PO .TID-QID PRNRF: 0 fentanyl 75 mcg/hr Patch 72 Hour 1 patch TRANSDERMAL Q72H RF: 0 sennosides [senna] 8.6 mg Tablet 8.6 mg PO QHS RF: 0 Discharge Instructions Additional Instructions: The top bandage can be removed in 2-3 days. The steri strips will usually stick for about a week. When the edges start to curl up, they can be removed. It is okay to shower tomorrow, the water can run over the dressing Do not swim or soak in a tub for two weeks Call for any concerns including fever, increased pain, vomiting, incision redness or drainage. Do not lift more than 30# for one week. Walking and stairs are fine. Do not drive if limited by pain. . If concerned about constipation, you may use a stool softener or milk of magnesia. Referrals: Pushpa Mcbride MD [ [facility] STAFF PHYSICIAN] - (Follow up as needed) Activity:: Activity as Tolerated Remove Dressings/Wound Care:: 72 hours Shower/Bathe:: 24 hours Diet:: As Tolerated Discharge Orders Discharge Orders: Discharge Order (Routine); Ordered 04/11/19 Ordered By: Pushpa Mcbride DS: Diagnosis Discharge Diagnosis (1) Esophageal cancer: Status: Acute
[2019-04-11 13:03] LABS: Abs Immature Grans 0.08 k/cumm (0.0-0.09); Absolute Basophil Count 0.03 k/cumm (0.0-0.2); Absolute Eosinophil Count 0.08 k/cumm (0.0-0.7); Absolute Lymphocyte Count 2.33 k/cumm (1.2-3.4); Absolute Monocyte Count 2.25 k/cumm (0.11-0.7); Absolute Neutrophil Count 10.74 k/cumm (1.2-6.7); Basophils % 0.2; Eosinophils % 0.5; HCT 36.6 % (40.0-50.0); HGB 12.2 g/dL (13.5-17.5); Immature Grans % 0.5; Mean Corp. HGB Concentration 33.3 g/dL (32.0-36.0); Mean Corpuscular Hemoglobin 30.2 pg (27.0-33.0); Mean Corpuscular Volume 90.6 fL (80-95); Mean Platelet Volume 8.6 fL (8.0-11.0); Monocytes % 14.5; Neutrophils % 69.3; Platelet Count 515 x1000/uL (130-400); RBC 4.04 m/cumm (4.50-6.00); RBC Distribution Width 12.2 % (11.8-14.1)
[2019-04-11 13:19] LABS: ALT 16 U/L (16-63); AST 11 U/L (15-37); Albumin 2.2 g/dL (3.4-5.0); Alkaline Phosphatase 73 U/L (46-116); Anion Gap 5.4 mmol/L (3-11); BUN 4 mg/dL (7-18); Bilirubin, Total 0.5 mg/dL (0.2-1.0); CO2 30.6 mmol/L (21.0-32.0); CREATININE 0.52 mg/dL (0.70-1.30); Calcium 9.2 mg/dL (8.5-10.1); Chloride 99 mmol/L (98-107); Glucose 110 mg/dL (70-100); Potassium 4.5 mmol/L (3.5-5.1); Sodium 135 mmol/L (136-145); Total Protein 6.9 g/dL (6.4-8.2)
[2019-04-11 13:28] VITALS: BP 128/82; PULSE 85; RESP 16; TEMP 36.6; O2SAT 96
--- NOTE | 2019-04-11 15:09 | ROE_ITS ---
DATE OF PROCEDURE: April 11, 2019 PREOPERATIVE DIAGNOSIS: Esophageal cancer. POSTOPERATIVE DIAGNOSIS: Esophageal cancer. PROCEDURE: Right subclavian Mediport placement. SURGEON: Pushpa Mcbride M.D. ANESTHESIA: Local and sedation. INDICATIONS: This is a 49-year-old man who is soon to begin chemotherapy for metastatic esophageal c ancer. PROCEDURE: He was placed supine on the operating table and his arms were tucked. His bilateral ches t and neck were prepped and draped sterilely. The skin of the upper chest wall was infiltrated with local anesthetic on the right side. This is per patient request. The 18 gauge needle is used to ac cess the subclavian vein after several attempts. The patient was fairly thick chested and I needed t o have the access site a bit more medially to enter the vein. The wire was fed without difficulty an d shown to be in the superior vena cava using fluoroscopy. The wire was clipped to the drape. A poc ket was created on the chest wall by making an incision inferior laterally from the wire. Subcutaneo us tissue was divided with cautery and then the pocket extended inferiorly over the pectoralis muscle . The catheter was attached to the port and the length measured using fluoro. The peel-away and dil ator were passed over the wire, then the wire and dilator removed. The catheter was passed down the peel-away, which was then removed. Fluoroscopy showed the catheter to be in good position. The port was sutured to the chest wall with #3-0 Prolene sutures. The subcutaneous tissue was reapproximated with interrupted #3-0 Vicryl sutures and the skin closed with a #4-0 Monocryl subcuticular stitch. The port was then accessed and aspirated easily. It was flushed with 5 cc's of heparinized saline. He tolerated the procedure well and was stable to recovery. Post-procedure chest film showed the por t to be in good position and no evidence of pneumothorax. cc: Juhi Lassiter M.D.
== END 2019-04-11 13:55 | disposition home or self-care (01) ==
PROVIDERS: Internal Medicine Hematology & Oncology; PCP Family Medicine; Visit Provider Surgery
PROC: (CPT 36561; principal; 2019-04-11 10:45)
DX: C15.9 Malignant neoplasm of esophagus, unspecified (principal); Z45.2 Encounter for adjustment and management of vascular access device; C79.9 Secondary malignant neoplasm of unspecified site
CPT/HCPCS: 36561; 77001; 36415; 71045; 80053; 85025; C1788; J0690

== ENCOUNTER 2019-04-15 18:59 | Emergency (ER) | payer MEDICAID, SELFPAY ==
[2019-04-15] VITALS (32 sets, daily range): BP systolic 83–117; BP diastolic 54–77; PULSE 88–987; RESP 13–42; TEMP 36.8–37.2; O2SAT 88–97
--- NOTE | 2019-04-15 19:28 | W.ED.GENAD ---
Discharge Plan Disposition Patient Disposition: [facility] Condition: Critical Discharge Details Chief Complaint: GenMedical Clinical Impression: Cough, Esophageal mass, HCAP (healthcare-associated pneumonia), Hypomagnesemia, Singultus, Esophageal fistula Primary Care Provider: Juhi Lassiter V ED Provider: James Perrin Home Meds and New Rx's Prescriptions: No Action nicotine 21 mg/24 hr Patch 24 Hour 14 mg transdermal DAILY Qty: 30 RF: 0 docusate sodium [Colace] 100 mg Capsule 100 mg PO BID Qty: 60 RF: 0 metoprolol tartrate 25 mg Tablet 25 mg PO BID Qty: 90 RF: 0 albuterol sulfate [ProAir HFA] 90 mcg/actuation HFA aerosol inhaler 2 puff IH BID Qty: 18 RF: 0 ondansetron 4 mg tablet,disintegrating 4 mg PO Q6H PRN (Reason: nausea and vomiting) Qty: 20 RF: 0 pantoprazole 40 MG tablet,delayed release (DR/EC) 40 mg PO BID Qty: 60 RF: 0 hydromorphone [Dilaudid] 4 mg Tablet 4 mg PO .TID-QID PRNRF: 0 fentanyl 75 mcg/hr Patch 72 Hour 1 patch TRANSDERMAL Q72H RF: 0 sennosides [senna] 8.6 mg Tablet 8.6 mg PO QHS RF: 0 Discharge Data Date/Time: 04/17/19 23:59 Discharge Date/Time-TO BE ENTERED AT DEPARTURE: 04/15/19 23:23 Medical Decision Making <Yohana Goetz DO - Last Filed: 04/23/19 09:01> 1916 -- 49yo M recently diagnosed with esophageal cancer in January 2019 with history of esophagogastric stent with removal due to pain who presents with cough with green sputum, vomiting, hiccups and right upper quadrant abdominal pain starting today. Heart rate 100s. Afebrile. O2 sat 92% on room air. BP 117/66. Pt appears uncomfortable but not in acute distress. Lungs clear B/L. Tenderness to palpation right upper quadrant but otherwise abdomen soft without rigidity or guarding. EKG notes a rate of 99, sinus with what appears to be a repolarization variant with anterior lateral ST elevation in V4 and V5. No ST depression. Differential diagnosis includes pneumonia, viral syndrome, PE, electrolyte abnormality, dehydration, acute abdominal abnormality. Will give bolus IV fluids, Dilaudid, Zofran, check screening labs, CT chest abdomen pelvis. 1999 -- case endorsed to Dr. Perrin to f/u on labs and imaging and final disposition. ECG Data Attestation: I personally reviewed and interpreted this ECG (s) as follows: Interpretation: rate of 99, sinus, appears to be a repolarization variant in V4 and V5. No obvious ST elevation or depression. AR 138. QTc 439. QRS 104. <James Perrin, DO - Last Filed: 04/15/19 22:45> Upon my evaluation, this patient had a high probability of imminent or life-threatening deterioration, which required my direct attention, intervention, and personal management. I have personally provided 45 minutes of critical care time exclusive of time spent on separately billable procedures. Time includes review of laboratory data, radiology results, discussion with consultants, and monitoring for potential decompensation. Interventions were performed as documented above. This is a pleasant 49-year-old male with a notable past medical history of squamous cell carcinoma esophageal cancer esophageal stent that was subsequently removed back in March, is currently receiving chemotherapy and radiation with FOLFOX last chemotherapy 3 days ago and last radiation 24 hours ago. He is seen at [facility]. Presents today with fever shortness of breath cough right upper quadrant pain vomiting and mild difficulty swallowing. Please refer to Dr. Goetz's documentation for initial HPI and assessment. Case was signed out to me pending labs and imaging. On my independent reassessment patient is clinically stable, no hypoxemia, hypotension, pain is controlled, no hemodynamic instability. Laboratory work-up demonstrates a notably elevated white count at 21 with a significant left shift, hemoglobin stable at 11.8. No evidence of neutropenia. Sodium is low at 130 electrolytes are otherwise normal aside for low magnesium at 1.5, lactate normal, calcium stable. Potassium normal. EKG shows mild repolarization but no evidence of STEMI. Troponin normal. Lipase, bilirubin and transaminases normal, urinalysis negative for infection. Personal review of CT scan demonstrates notable right lower lobe pneumonia, gallbladder wall is certainly highlighted. Pending final CT reads by radiology. We will start broad-spectrum antibiotics with double gram-negative coverage with vancomycin, Zosyn, and Levaquin secondary to his chemotherapy, radiation, recent hospital admissions or cancer. 10:38 PM [facility] did contact us, and they have significant concern that the patient has a perforation through his esophagus causing pneumonia and abscess in the right lower lung field. There also concern for fistula. Antibiotics have already been started. Unfortunately not long after this the patient had a repeat episode of singultus and significant acute pain, shortly thereafter he had a notable drop in his blood pressure to the 80s systolic, and increase in his heart rate in the 100s. Additional fluid boluses were started, levo fed was hung but not yet started as his pressures came up with a normal saline boluses. Antibiotics were continued. [facility] was immediately consulted for thoracic surgery evaluation and transfer. Case was discussed with Dr. Haynes and she agrees with the assessment and plan as well as the need for admission to the SICU. They have no additional recommendations at this time. [facility] is not available, [facility] is available for ground transport. Patient will be transferred immediately to [facility] for surgical evaluation and medical management. The patient has been accepted for transfer, and at time of disposition patient's blood pressure has notably improved to the 100 systolic, map is greater than 65. Levo fed has been hung but not started. EMS recommendations are to start at 5 mics and titrate up as needed to maintain map greater than 65. Continue IV fluids. Currently the patient's respiratory status is unchanged he is on 2 L of nasal cannula supplemental oxygen O2 is 98 to 99%, no signs of current or expectant respiratory compromise or failure. He remains stable from a respiratory standpoint, his hemodynamic component is my greater concern. Patient will be transferred immediately for surgical evaluation at [facility]. I have extensively reviewed the treatment plan with the patient. I have addressed all patient concerns at this time. I have also discussed the plan with the admitting physician and they agree with the current assessment and plan and have agreed to assume responsibility for the patient. All parties demonstrate verbal understanding and agreement with our assessment and plan at this time. At time of transfer the patient was reassessed and continued to demonstrate no signs of acute respiratory distress requiring intubation. Hemodynamic instability has currently resolved. He shows no signs of rapidly declining mental status. The patient is appropriate for transport. HPI <Yohana Goetz DO - Last Filed: 04/23/19 09:01> General Mode of arrival: ambulatory. Date/Time Provider Initiated Documentation: 04/15/19 19:15. Limitations to Documentation: no limitations. Information obtained by: patient. HPI Narrative: Patient is a 49-year-old male diagnosed with esophageal cancer in January 2019 with history of esophagogastric stent who started chemo and radiation this week and followed by [facility] oncology Dr. Farmer and Dr. Augustine who presents to the ED with complaint of cough with yellow and brown sputum, hiccups, vomiting and right upper quadrant pain that started today. Patient states he has had hiccups before but states it is lasting longer today. Patient states his right upper quadrant pain is constant, sharp and currently 8/10. He states the pain in his right upper quadrant is worse with taking a deep breath. He has not taken any medication for his symptoms today. He also states he had a temp T-max of 100.9 today. He does admit to occasional shortness of breath but denies any chest pain. Related Data Home Medications Medication Instructions Recorded Confirmed albuterol sulfate [ProAir HFA] 2 puff IH BID #18 gm 02/27/19 04/15/19 docusate sodium [Colace] 100 mg PO BID #60 cap 02/27/19 04/15/19 metoprolol tartrate 25 mg PO BID #90 tab 02/27/19 04/15/19 nicotine 14 mg TRANSDERMAL DAILY #30 ea 02/27/19 04/15/19 ondansetron 4 mg PO Q6H PRN #20 tab 02/27/19 04/15/19 pantoprazole 40 mg PO BID #60 tab 02/27/19 04/15/19 fentanyl 1 patch TRANSDERMAL Q72H 04/07/19 04/15/19 hydromorphone [Dilaudid] 4 mg PO .TID-QID PRN 04/07/19 04/15/19 sennosides [senna] 8.6 mg PO QHS 04/07/19 04/15/19 Previous Rx's Medication Instructions Recorded albuterol sulfate [ProAir HFA] 2 puff IH BID #18 gm 02/27/19 docusate sodium [Colace] 100 mg PO BID #60 cap 02/27/19 metoprolol tartrate 25 mg PO BID #90 tab 02/27/19 nicotine 14 mg TRANSDERMAL DAILY #30 ea 02/27/19 ondansetron 4 mg PO Q6H PRN #20 tab 02/27/19 pantoprazole 40 mg PO BID #60 tab 02/27/19 Allergies Allergy/AdvReac Type Severity Reaction Status Date / Time aspirin AdvReac Unverified 04/15/19 19:08 General Stated Complaint: GenMedical JAXSON: 3 Review of Systems <Yohana Goetz DO - Last Filed: 04/23/19 09:01> Review of Systems ROS Unobtainable: All systems reviewed & are unremarkable except as noted in HPI and below Constitutional Constitutional: Reports as per HPI, Denies chills and Denies fever(s) Eyes Eyes: Denies blurry vision ENT Ears, Nose, Mouth, and Throat: Denies dizziness, Denies sore throat and Denies throat swelling Cardiovascular Cardiovascular: Denies chest pain and Denies dyspnea Respiratory Respiratory: Denies cough and Denies dyspnea Gastrointestinal Gastrointestinal: Denies abdominal pain, Denies diarrhea and Denies vomiting Genitourinary Genitourinary: Denies hematuria and Denies dysuria Musculoskeletal Musculoskeletal: Denies back pain and Denies numbness Integumentary/Breasts Skin/Breast: Denies lesions and Denies rash Neurologic Neurologic: Denies dizziness, Denies focal weakness and Denies numbness Allergic/Immunologic Allergic/Immunologic: Denies throat swelling PFSH <DO Hanna Kim Last Filed: 04/23/19 09:01> Social History Smoking/Tobacco Use Status: Former Tobacco Use Alcohol Intake: former Drug use: Occasionally Substance use type: marijuana Do you feel safe at home: Yes Do you feel safe in your relationship?: Yes Exam <Yohana Goetz DO - Last Filed: 04/23/19 09:01> Const General: ill appearing chronically and other (uncomfortable but not in acute distress) HENMT Head: normal to inspection Face and sinus: normal facial exam Eyes General: appearance normal, both eyes and all related structures EOM: EOM intact bilaterally Neck Neck: normal visual inspection and No submandibular swelling Lymphatic: no lymphadenopathy noted Chest Chest: normal inspection of the chest and no tenderness Resp Effort & Inspection: normal respiratory effort and able to speak in complete sentences Auscultation: clear to auscultation bilaterally Cardio Rate: tachycardic Rhythm: regular rhythm GI Inspection: normal to inspection and non-distended Palpation: soft, not firm, no guarding, no pulsatile masses, not rigid and tender in the RUQ Auscultation: hypoactive bowel sounds Skin General skin exam: no rashes or lesions noted Neuro General: alert, awake and oriented x3 Cognition: normal cognition Speech: speech normal Motor: muscle tone normal throughout Sensory Exam: no sensory deficits noted Extrem General: normal to inspection, full ROM, normal capillary refill, no calf tenderness bilaterally and no edema Psych Appearance: grossly normal Mental Status: mental status grossly normal Speech and Movement: speech and movement normal Affect: normal affect Course <Yohana Goetz DO - Last Filed: 04/23/19 09:01> Vital Signs Vital signs: Vital Signs Temperature 98.3 F 04/15/19 19:05 Pulse 106 H 04/15/19 19:05 Respiratory Rate 18 04/15/19 19:05 Blood Pressure 117/66 04/15/19 19:05 Pulse Oximetry 92 L 04/15/19 19:05 Temperature 98.3 F 04/15/19 19:05 Temperature Source Oral 04/15/19 19:05 Pulse 106 H 04/15/19 19:05 Respiratory Rate 18 04/15/19 19:05 Respiratory Effort Non-Labored 04/15/19 19:13 Respiratory Depth Normal 04/15/19 19:13 Respiratory Pattern Normal 04/15/19 19:13 Blood Pressure 117/66 04/15/19 19:05 Pulse Oximetry 92 L 04/15/19 19:05 Oxygen Delivery Method Room Air 04/15/19 19:05 Oxygen Flow Rate 0 04/15/19 19:05 Pain Level 8 04/15/19 19:05 Sign Out <Yohana Goetz DO - Last Filed: 04/23/19 09:01> Sign Out Data: Sign Out Comment: Follow-up on labs and imaging and final disposition. Last updated by Yohana Goetz DO at 04/15/19 20:02
--- NOTE | 2019-04-15 19:44 | DI.CT_ITS ---
SYMPTOM/DIAGNOSIS: RUQ ABD PAIN, VOMITING, COUGH, H/O ESOPHAGEAL CA PE CHEST CT AND ABDOMEN AND PELVIC CT: CT angiography was performed with multi slice acquisition and multi planar and 3D reconstruction. The examination was carried out with the intravenous administration of 100 cc's of Omnipaque 350. CHEST: A right chest wall Portacath is noted with its tip ending in the superior portion of the right atrium. There is no evidence of PE. The aorta is unremarkable. A moderate sized area of dense consolidation in the right lower lobe is compatible with pneumonia. A cavitary area in the consolidation measures up to 3.3 by 4.3 cm. and could represent a pulmonary abscess versus cavitary mass. Note is made of a very small right pleural effusion. Note is made of a mass measuring up to 6 by 6 cm. at the gastroesophageal junction and distal esophagus. The findings would certainly be compatible with malignancy. There is apparent erosion of the right aspect of the distal esophageal wall with a probable fistula into the lung, likely causing the right lower lobe cavitary region and pneumonia. The esophagus is patulous and contains low density fluid. There are enlarged subcarinal and right hilar lymph nodes suspicious for metastatic disease. There are scattered degenerative changes involving the spine. Note is made of small areas of subcutaneous gas in the right anterior chest wall just below the portacath. SUMMARY: There is a moderate sized dense area of consolidation in the right lower lobe which is compatible with pneumonia. A cavitary area in the consolidation measuring up to 3.3 by 4.3 cm. could represent a pulmonary abscess versus cavitary mass. In addition, a gastroesophageal junction distal esophageal mass measures up to 6 by 6 cm. and would be compatible with a malignancy. There is apparent erosion of the right aspect of the distal esophageal wall with a probable fistula into the lung causing the right lower lobe cavitary region and pneumonia. Also there are enlarged subcarinal and right hilar lymph nodes, certainly suspicious for metastatic disease. There is no evidence of PE. A very small right pleural effusion is demonstrated. Also note is made of a small area of subcutaneous gas in the right anterior chest wall just below the portacath. ABDOMEN AND PELVIS: A small area of diminished absorption is noted in the segment 4 of the liver and likely represents a region of fatty infiltration. In addition, an 8 mm., hypoenhancing lesion is noted in the right hepatic lobe and is indeterminate. The gallbladder wall is at the upper limits of normal at 3 mm. There is no evidence of fat stranding. There are no calcified stones or ductal dilatation. The pancreas abuts a gastroesophageal mass and pancreatic involvement could not be ruled out in this patient. There is no evidence of splenomegaly. A left adrenal nodule measures up to 18 mm. in diameter. There is no evidence of hydronephrosis. There is no evidence of bowel obstruction. Note is again made of a gastroesophageal junction mass consistent with a malignancy which extends inferiorly to abut the pancreas. There is no evidence of an acute appendix. There is no evidence of free air or free fluid in the intraperitoneal space. There is atherosclerotic change involving the aorta without evidence of an aneurysm. Enlarged emmett hepatis lymph nodes are identified, the largest measuring up to 2 cm. Metastatic disease is not excluded. IMPRESSION: A left adrenal nodule is suspicious for metastatic disease. As noted, the pancreas abuts the gastroesophageal mass and pancreatic involvement cannot be excluded. A small area of hypoenhancement involving segment 4 of the liver could well represent fatty infiltration. An additional 8 mm. hypoenhancing lesion in the right hepatic lobe is indeterminate. The gallbladder wall is at the upper limits of normal thickness at 3 mm. There is nothing to suggest surrounding inflammatory change.
[2019-04-15 19:46] LABS: Abs Immature Grans 0.08 k/cumm (0.0-0.09); Absolute Lymphocyte Count 1.16 k/cumm (1.2-3.4); Absolute Monocyte Count 0.49 k/cumm (0.11-0.7); Absolute Neutrophil Count 19.72 k/cumm (1.2-6.7); HCT 35.3 % (40.0-50.0); HGB 11.8 g/dL (13.5-17.5); Immature Grans % 0.4; Lactate 0.8 mmol/L (0.6-1.4); Lymphocytes % 5.4; Mean Corp. HGB Concentration 33.4 g/dL (32.0-36.0); Mean Corpuscular Hemoglobin 29.7 pg (27.0-33.0); Mean Corpuscular Volume 88.9 fL (80-95); Mean Platelet Volume 8.5 fL (8.0-11.0); Monocytes % 2.3; Neutrophils % 91.9; Platelet Count 346 x1000/uL (130-400); RBC 3.97 m/cumm (4.50-6.00); RBC Distribution Width 12.1 % (11.8-14.1); White Blood Cell Count 21.46 k/cumm (4.4-10.8)
[2019-04-15] MEDS: Ondansetron 4 MG/2 ML VIAL IVP (19:52)
[2019-04-15] MEDS: HYDROmorphone 2 MG/ML VIAL 1 MG IVP ×3 (19:53→20:51)
[2019-04-15] MEDS: Normal Saline 1,000 ML 150 ML IV (19:55)
[2019-04-15 20:09] LABS: Lipase 46 U/L (73-393)
[2019-04-15 20:23] LABS: Troponin I < 0.05 ng/mL (0.00-0.06)
[2019-04-15] MEDS: Omnipaque 350 MG/ML 100 ML BTL IJ (20:24)
[2019-04-15 20:27] LABS: ALT 16 U/L (16-63); AST 12 U/L (15-37); Albumin 2.2 g/dL (3.4-5.0); Alkaline Phosphatase 77 U/L (46-116); Anion Gap 8.2 mmol/L (3-11); BUN 13 mg/dL (7-18); Bilirubin, Total 0.9 mg/dL (0.2-1.0); CO2 27.8 mmol/L (21.0-32.0); CREATININE 0.59 mg/dL (0.70-1.30); Calcium 8.7 mg/dL (8.5-10.1); Chloride 94 mmol/L (98-107); Glucose 125 mg/dL (70-100); Magnesium 1.5 mg/dL (1.8-2.4); Potassium 3.9 mmol/L (3.5-5.1); Sodium 130 mmol/L (136-145); Total Protein 6.7 g/dL (6.4-8.2)
[2019-04-15 20:39] LABS: Bilirubin Negative (Negative); Blood Trace-lysed (Negative); Clarity Clear (Clear); Glucose Negative (Negative); Ketones Negative (Negative); Leukocyte Esterase Negative (Negative); Nitrite Negative (Negative); Specific Gravity <= 1.005 (1.005-1.025); Urobilinogen >=8.0 EU/dL (Up TO 0.2); pH 6.5 (5-8)
[2019-04-15 20:48] LABS: Bacteria Negative HPF (Negative); Casts Negative LPF (Negative); Crystals Negative HPF (Negative); Epithelial Cells Negative HPF (Negative); Mucus Negative (Negative); Other Cells Negative (Negative)
[2019-04-15 20:49] LABS: C & S Indicated? No
[2019-04-15] MEDS: PIPERACILLIN/TAZO 4.5 GM in Normal Saline 100 ML IVPB (20:58)
[2019-04-15] MEDS: MAGNESIUM SULFATE 2 GM/50 ML BAG IVPB (21:16)
[2019-04-15] MEDS: levoFLOXacin 750 MG/150 ML BAG 100 MG IVPB (21:18)
--- NOTE | 2019-04-15 21:37 | DI.VRAD_ITS ---
EXAM: CT Angiography Chest With Contrast EXAM DATE/TIME: 04/15/2019 7:46 PM CLINICAL HISTORY: 49 years old, male; Prior surgery; Surgery type: Power port on 04/11/19; Patient HX: Ruq pain, vomiting, cough; H/o esophageal CA; Additional info: R/O pneumonia, pe, acute abd abnormality TECHNIQUE: Imaging protocol: Computed tomographic angiography of the chest with intravenous contrast. 3D rendering: MIP reconstructed images were created and reviewed. COMPARISON: CR XR PORTABLE CHEST AP POST LINE 04/11/2019 12:43 PM FINDINGS: Tubes, catheters and devices: Right chest wall Port-A-Cath with tip in the high right atrium. Pulmonary arteries: No evidence of pulmonary embolism. Aorta: Unremarkable. No aortic aneurysm. No aortic dissection. Lungs: Moderate size area of dense consolidation in the right lower lobe is compatible with pneumonia. Cavitary area in the consolidation measuring 33 x 43 mm, may represent pulmonary abscess versus cavitary mass. Pleural space: Trace right pleural effusion. Heart: Unremarkable. No cardiomegaly. No pericardial effusion. Mediastinum: Gastroesophageal junction/distal esophageal mass measuring 6 x 6 cm, compatible with malignancy. Apparent erosion of the right aspect of the distal esophageal wall, with probable fistula into the lung, likely causing the right lower lobe cavitary region and pneumonia. The esophagus is patulous containing low density fluid. Lymph nodes: Enlarged subcarinal and right hilar lymph nodes, suspicious for metastatic disease. Bones/joints: Scattered degenerative disease of the spine. Soft tissues: Small area of subcutaneous gas in the right anterior chest wall just below the Port-A-Cath. IMPRESSION: 1. Moderate size area of dense consolidation in the right lower lobe is compatible with pneumonia. Cavitary area in the consolidation measuring 33 x 43 mm, may represent pulmonary abscess versus cavitary mass. 2. Gastroesophageal junction/distal esophageal mass measuring 6 x 6 cm, compatible with malignancy. Apparent erosion of the right aspect of the distal esophageal wall, with probable fistula into the lung, likely causing the right lower lobe cavitary region and pneumonia. 3. Enlarged subcarinal and right hilar lymph nodes, suspicious for metastatic disease. 4. No evidence of pulmonary embolism. 5. Trace right pleural effusion. 6. Small area of subcutaneous gas in the right anterior chest wall just below the Port-A-Cath. EXAM: CT Abdomen and Pelvis With Contrast EXAM DATE/TIME: 04/15/2019 7:46 PM CLINICAL HISTORY: 49 years old, male; Prior surgery; Surgery type: Power port on 04/11/19; Patient HX: Ruq pain, vomiting, cough; H/o esophageal CA; Additional info: R/O pneumonia, pe, acute abd abnormality TECHNIQUE: Imaging protocol: Computed tomography of the abdomen and pelvis with intravenous contrast. 3D rendering: MIP reconstructed images were created and reviewed. COMPARISON: CR XR PORTABLE CHEST AP POST LINE 04/11/2019 12:43 PM FINDINGS: Liver: Small area of hypoenhancement in segment 4 the liver can be from focal fat infiltration. Additional 8mm hypoenhancing lesion in the right hepatic lobe, indeterminate. Gallbladder and bile ducts: The gallbladder wall is in upper limits of normal measuring 3 mm, however no significant surrounding fat stranding. No calcified stones. No ductal dilation. Pancreas: The pancreas body abuts the gastroesophageal mass, and therefore pancreatic involvement is not ruled out. Spleen: No splenomegaly. Adrenals: Left adrenal nodule measuring 18 mm. Kidneys and ureters: No hydronephrosis. Stomach and bowel: Gastroesophageal junction mass as detailed above, compatible with malignancy. It extends inferiorly abutting the pancreas. Appendix: No evidence of appendicitis. Intraperitoneal space: No free air. No significant fluid collection. Vasculature: Atherosclerotic disease. Lymph nodes: Enlarged emmett hepatis nodes with the largest measuring 20 mm. Bladder: Apparent mild circumferential bladder wall thickening, may be exaggerated by non-maximal distention. Reproductive: Unremarkable as visualized. Bones/joints: Scattered degenerative disease of the spine. Soft tissues: Unremarkable. IMPRESSION: 1. Gastroesophageal junction mass as detailed above, compatible with malignancy. 2. Enlarged emmett hepatis nodes with the largest measuring 20 mm. Metastatic disease is not excluded. 3. Left adrenal nodule measuring 18 mm. Metastatic disease is not excluded. 4. The pancreas body abuts the gastroesophageal mass, and therefore pancreatic involvement is not ruled out. 5. Small area of hypoenhancement in segment 4 the liver can be from focal fat infiltration. Additional 8mm hypoenhancing lesion in the right hepatic lobe, indeterminate. 6. The gallbladder wall is in upper limits of normal measuring 3 mm, however no significant surrounding fat stranding. THIS REPORT CONTAINS FINDINGS THAT MAY BE CRITICAL TO PATIENT CARE. The findings were verbally communicated via telephone conference with Dr. Perrin at 9:34 PM EDT on 04/15/2019. The findings were acknowledged and understood. Dictated and Authenticated by: German Day MD. Ordering:JERRY Muller MD
[2019-04-15] MEDS: Normal Saline 1,000 ML 1000 ML IV (22:00)
[2019-04-15] MEDS: HYDROmorphone 2 MG/ML VIAL (22:09)
[2019-04-15] MEDS: Metoclopramide 10 MG/2 ML VIAL IVP (22:28)
[2019-04-15] MEDS: fentaNYL 100 MCG/2 ML VIAL ×2 (22:29→23:24)
[2019-04-15 22:36] LABS: PTT Activated 26.8 sec (21.0-31.4); Prothrombin Time 11.5 sec (9.3-11.0)
[2019-04-15 22:40] LABS: INR 1.1 (0.9-1.1)
== END 2019-04-15 23:23 | disposition short-term general hospital (02) ==
PROVIDERS: Physician Assistant; Emergency Provider Student in an Organized Health Care Education/Training Program; PCP Family Medicine
DX: J18.9 Pneumonia, unspecified organism (principal); Y95 Nosocomial condition; R13.10 Dysphagia, unspecified; K22.8 Other specified diseases of esophagus; C15.9 Malignant neoplasm of esophagus, unspecified; E83.42 Hypomagnesemia; R06.6 Hiccough; R10.11 Right upper quadrant pain; R11.2 Nausea with vomiting, unspecified; Z95.828 Presence of other vascular implants and grafts; Z79.899 Other long term (current) drug therapy; I10 Essential (primary) hypertension
CPT/HCPCS: 36415; 36591; 71275; 74177; 80053; 83690; 86850; 86900; 86901; 87040; 87077; 93005; 96361; 96365; 96367; 96368; 96375; 96376; 99291; 81003; 81015; 83605; 83735; 84484; 85025; 85610; 85730; 87070; 87205; 93010; J1956; J2405; J2543; J2765; J3010; J3490